=== PATIENT | female | born 1970 | race Caucasian/White ===

== ENCOUNTER 2018-05-28 13:48 | Outpatient (CLI) | payer OTHER, SELFPAY ==
[2018-05-28] VITALS (9 sets, daily range): BP systolic 111–136; BP diastolic 55–98; PULSE 75–87; RESP 16; TEMP 36.6; O2SAT 97–98
--- NOTE | 2018-05-28 13:50 | DI.RAD.S_ITS ---
PROCEDURE: PAIN L/S TRANSFORAMINAL INJECT INDICATIONS: SPONDYLOSIS FINDINGS: Fluoroscopic spot filming was performed to verify placement of spinal needles at the L3-L4 level(s), as labeled on the films. Appropriate location(s) of the needle tip(s) was confirmed by injection of iodinated contrast. Dictated by: Nick Stone M.D. on 05/28/2018 at 15:39 Approved by: Nick Stone M.D. on 05/28/2018 at 15:39
[2018-05-28] MEDS: MIDAZOLAM 5 MG/5 ML VIAL IV (14:55)
[2018-05-28] MEDS: BUPIVACAINE 0.25% (PF) VIAL 2 ML INJ (15:02)
[2018-05-28] MEDS: IOPAMIDOL 15 ML VIAL 3 ML INJ (15:02)
[2018-05-28] MEDS: DEXAMETHASONE 10 MG/ML VIAL 20 MG INJ (15:03)
[2018-05-28] MEDS: methylPREDNISolone acetate 80 MG/ML VIAL INJ (15:03)
--- NOTE | 2018-05-28 15:11 | PC.NURSE ---
assisting pt off table and transporting to post proc area in stable condition
--- NOTE | 2018-05-28 15:18 | PC.NURSE ---
returned via w/c post procedure, is alert and able to get from w/c with standby assist and assuming care from Nadege levine.
--- NOTE | 2018-05-28 15:20 | P.PCN_ITS ---
Procedures Date/Time Date of procedure: 05/28/18 Time of procedure: 15:19 General Procedure description: PROVIDER: Maxx Casillas DO Operative Note PREOP DIAGNOSIS 1. FORAMINAL STENOSIS WITH LE SYMPTOMS, POST OP DIAGNOSIS 1. FORAMINAL STENOSIS WITH LE SYMPTOMS, PROCEDURES 1. FLUOROSCOPICALLY GUIDED CONTRAST CONTROLLED TRANSFORAMINAL EPIDURAL STEROID INJECTION - RIGHT L3/4 TFESI SURGEON: Maxx Casillas, INDICATIONS Dayami is referred by [facility] for treatment of Foraminal Stenosis with right LE Symptoms FINDINGS Foraminal Nerve Root Compression secondary to disc disease and facet hypertrophy DESCRIPTION OF PROCEDURE Following denial of allergy and review of potential side effects and complications, including, but not necessarily limited to, infection, allergic reaction, local tissue breakdown, stroke, temporary or permanent nerve injury, paralysis, and possible , the patient indicated that the patient understood and agreed to proceed. An informed consent document was signed by the patient, witnessed by a nurse, and placed in the patient's chart. Additionally, other treatment options including medications, modalities, and physical therapy were reviewed with the patient. After review of previous anaesthesic history and IV conscious sedation the patient was deemed safe to proceed with todays procedure with IV conscious sedation as ASA class II designation. Safety time-out was performed to confirm patient ID, procedure to be performed and site of procedure. IV sedation was accomplished with a combination of 3mg was administered by the RN after DO order , titrated to patient comfort during the course of the procedure while the patient remained responsive to all verbal commands In the prone position following sterile prep and drape of the lumbar region, the right L3/4 posterior neuroforamen was identified fluoroscopically. The skin was anesthetized via a 25-gauge 1.5-inch needle with 1% lidocaine solution. At this point, a 25-gauge 3.5-inch spinal needle was atraumatically introduced and advanced under fluoroscopic guidance through the posterior right L3/4 neuroforamen to approximately the anterior aspect of the canal. Depth was confirmed on lateral view. Following negative aspiration, injection of approximately 1.5 cc of Isovue 200 under live fluoroscopy in the AP view confirmed excellent flow along the nerve root, into the epidural space without vascular or intrathecal uptake observed Radiological data, including multiple fluoroscopic views of the lumbosacral spine, reveal a spinal needle at the right L3/4 posterior neuroforamen. Subsequent views show flow of contrast material flowing superiorly and inferiorly along the nerve root confirming epidural flow. Subsequently, a test dose of 1.5 cc of 1% lidocaine solution was administered and patient was observed for two minutes for signs or symptoms of complications , including abdominal pain, shortness of breath, bilateral upper or lower extremity weakness, nausea and vomiting, prior to steroid injection. At this point, a total of 3 cc or 20 mg of dexamethasone and 80mg Depo medrol was injected without incident. The patient tolerated the procedure well without signs or symptoms of complications prior to transfer to the recovery area continued monitoring without incident. The patient was then transferred to the recovery area where they were observed for an appropriate time after the injection. The patient reported a VAS score of 7 prior to the procedure and a post-procedure VAS of 0. Total Fluoroscopy Time: 24.2 seconds Total Conscious Sedation Time: 24min POST OP INSTRUCTIONS The patient was provided a Pain Log to continue to record their response to the target-specific procedure prior to follow-up visit with their referring physician. Additionally, specific post-injection care instructions and a contact number to our office were provided if concerns arise regarding possible complications associated with the procedure are suspected. Maxx Casillas DO Complications: none
--- NOTE | 2018-05-29 14:12 | PC.NURSE ---
FOLLOW UP CALL MADE, LEFT MSG WITH CLINIC NUMBER FOR QUESTIONS/CONCERNS.
== END 2018-05-28 15:43 | disposition home or self-care (01) ==
LOC: RAD 13:49
PROVIDERS: Family Provider Family Medicine; PCP Family Medicine; Visit Provider Physical Medicine & Rehabilitation
DX: M48.061 Spinal stenosis, lumbar region without neurogenic claudication (principal); M51.16 Intervertebral disc disorders with radiculopathy, lumbar region; M47.817 Spondylosis without myelopathy or radiculopathy, lumbosacral region
CPT/HCPCS: 64483; 99152; J1040; J1100; J2250

== ENCOUNTER → 2018-07-05 11:32 | Outpatient (CLI) | payer OTHER, SELFPAY ==
[2018-07-05 11:52] LABS: Add Manual Diff / Slide Review NO; Basophils Absolute Auto 100 /uL (0-100); Basophils Percent Auto 0.7 % (0-2); Eosinophils Absolute Auto 200 /uL (0-450); Hematocrit 40.2 % (36-46); Hemoglobin 13.7 g/dL (12.0-16.0); Lymphocytes Absolute Auto 1900 /uL (1100-4500); Lymphocytes Percent Auto 24.1 % (25-40); Mean Corpuscular HGB Conc 34.1 % (30-36); Mean Corpuscular Hemoglobin 30.8 PG (26-34); Mean Corpuscular Volume 90.3 fL (80-100); Monocytes Absolute Auto 400 /uL (0-900); Monocytes Percent Auto 5.4 % (3-14); Neutrophils Absolute Auto 5300 /uL (1500-7000); Neutrophils Percent Auto 67.8 % (50-75); Platelet Count 386 X10^3/uL (150-400); Red Blood Cell Count 4.45 X10^6/uL (4.0-5.2); Red Cell Distribution Width 13.4 % (11.6-14.8); White Blood Cell Count 7.9 X10^3/uL (4.5-11.0)
[2018-07-05 12:53] LABS: Alanine Aminotransferase 34 IU/L (9-52); Albumin 4.5 g/dL (3.5-5.0); Albumin Globulin Ratio 1.5 (1.0-2.8); Alkaline Phosphatase 56 U/L (38-126); Aspartate Aminotransferase 27 IU/L (14-36); Bilirubin Total 1.4 mg/dL (0.2-1.3); Blood Urea Nitrogen 14 mg/dL (7-17); Calcium 9.3 mg/dL (8.4-10.2); Carbon Dioxide 26 mmol/L (22-32); Chloride 98 mmol/L (98-107); Cholesterol 207 mg/dL (140-199); Estimated Glomerular Filt Rate > 60.0 mL/min (>60); Glucose 96 mg/dL (70-100); HDL Cholesterol 32 mg/dL (40-60); HEMOLYSIS < 15 (0-50); LDL Cholesterol Calculated 150 mg/dL (<100); Potassium 3.9 mmol/L (3.4-5.1); Sodium 136 mmol/L (137-145); Total Protein 7.5 g/dL (6.3-8.2); Triglycerides 123 mg/dL (35-150)
[2018-07-05 13:14] LABS: TSH w/ Reflex to FT4 1.42 uIU/mL (0.47-4.68)
== END ==
PROVIDERS: PCP Family Medicine; Visit Provider Family Medicine
DX: Z00.00 Encounter for general adult medical examination without abnormal findings (principal); Z13.6 Encounter for screening for cardiovascular disorders
CPT/HCPCS: 36415; 80053; 80061; 84443; 85025

== ENCOUNTER 2018-08-14 12:22 | Outpatient (CLI) | payer OTHER, SELFPAY ==
[2018-08-14] VITALS (7 sets, daily range): BP systolic 116–137; BP diastolic 72–96; PULSE 72–88; RESP 16–17; O2SAT 97–99
--- NOTE | 2018-08-14 12:23 | DI.RAD.S_ITS ---
PROCEDURE: PAIN L/S TRANSFORAMINAL INJECT INDICATIONS: SPONDYLOSIS FINDINGS: Fluoroscopic spot filming was performed to verify placement of spinal needles at the right L2-3 neural foramen region, as labeled on the films. Appropriate location(s) of the needle tip(s) was confirmed by injection of iodinated contrast. IMPRESSION: Needle tip localization of the right L2-3 neural foraminal level for transforaminal epidural steroid injection. Dictated by: Camron Etienne M.D. on 08/14/2018 at 14:49 Approved by: Camron Etienne M.D. on 08/14/2018 at 14:50
[2018-08-14] MEDS: IOPAMIDOL 15 ML VIAL 3 ML INJ (13:36)
[2018-08-14] MEDS: BUPIVACAINE 0.25% (PF) VIAL 2 ML INJ (13:36)
[2018-08-14] MEDS: DEXAMETHASONE 10 MG/ML VIAL 20 MG INJ (13:36)
--- NOTE | 2018-08-14 13:44 | PM.PROC.1 ---
Procedures Date/Time Date of procedure: 08/14/18 Time of procedure: 13:44 General Procedure description: PROVIDER: Maxx Casillas DO Operative Note PREOP DIAGNOSIS 1. FORAMINAL STENOSIS WITH LE SYMPTOMS, POST OP DIAGNOSIS 1. FORAMINAL STENOSIS WITH LE SYMPTOMS, PROCEDURES 1. FLUOROSCOPICALLY GUIDED CONTRAST CONTROLLED TRANSFORAMINAL EPIDURAL STEROID INJECTION - LEFT L2/3 TFESI SURGEON: Maxx Casillas, INDICATIONS Dayami is referred by Dr. Bridges for treatment of Foraminal Stenosis with left LE Symptoms FINDINGS Foraminal Nerve Root Compression secondary to disc disease and facet hypertrophy DESCRIPTION OF PROCEDURE Following denial of allergy and review of potential side effects and complications, including, but not necessarily limited to, infection, allergic reaction, local tissue breakdown, stroke, temporary or permanent nerve injury, paralysis, and possible , the patient indicated that the patient understood and agreed to proceed. An informed consent document was signed by the patient, witnessed by a nurse, and placed in the patient's chart. Additionally, other treatment options including medications, modalities, and physical therapy were reviewed with the patient. After review of previous anaesthesic history and IV conscious sedation the patient was deemed safe to proceed with todays procedure with IV conscious sedation as ASA class II designation. Safety time-out was performed to confirm patient ID, procedure to be performed and site of procedure. IV sedation was accomplished with a combination of 3mg of Versed was administered by the RN after DO order, titrated to patient comfort during the course of the procedure while the patient remained responsive to all verbal commands In the prone position following sterile prep and drape of the lumbar region, the left L2/3 posterior neuroforamen was identified fluoroscopically. The skin was anesthetized via a 25-gauge 1.5-inch needle with 1% lidocaine solution. At this point, a 25-gauge 3.5-inch spinal needle was atraumatically introduced and advanced under fluoroscopic guidance through the posterior left L2/3 neuroforamen to approximately the anterior aspect of the canal. Depth was confirmed on lateral view. Following negative aspiration, injection of approximately 1.5 cc of Isovue 200 under live fluoroscopy in the AP view confirmed excellent flow along the nerve root, into the epidural space without vascular or intrathecal uptake observed Radiological data, including multiple fluoroscopic views of the lumbosacral spine, reveal a spinal needle at the left L2/3 posterior neuroforamen. Subsequent views show flow of contrast material flowing superiorly and inferiorly along the nerve root confirming epidural flow. Subsequently, a test dose of 1.5cc of 1% lidocaine solution was administered and patient was observed for two minutes for signs or symptoms of complications, including abdominal pain, shortness of breath, bilateral upper or lower extremity weakness, nausea and vomiting, prior to steroid injection. At this point, a total of 2cc or 20mg of dexamethasone was injected without incident. The patient tolerated the procedure well without signs or symptoms of complications prior to transfer to the recovery area continued monitoring without incident. The patient was then transferred to the recovery area where they were observed for an appropriate time after the injection. The patient reported a VAS score of 7 prior to the procedure and a post-procedure VAS of 0. Total Fluoroscopy Time: 24.2 seconds Total Conscious Sedation Time: 24min POST OP INSTRUCTIONS The patient was provided a Pain Log to continue to record their response to the target-specific procedure prior to follow-up visit with their referring physician. Additionally, specific post-injection care instructions and a contact number to our office were provided if concerns arise regarding possible complications associated with the procedure are suspected. Maxx Casillas DO Complications: none
[2018-08-14] MEDS: MIDAZOLAM 5 MG/5 ML VIAL IV (14:29)
--- NOTE | 2018-08-14 14:31 | PC.NURSE ---
pt finished procedure at 1339, she tolerated it well. Able to get off the table with standby assist. Transferred to pre procedure room via wheelchair for continued monitoring with Nadege WILEY.
== END 2018-08-14 14:36 | disposition home or self-care (01) ==
LOC: RAD 12:23
PROVIDERS: PCP Family Medicine; Visit Provider Physical Medicine & Rehabilitation
DX: M48.061 Spinal stenosis, lumbar region without neurogenic claudication (principal); M51.16 Intervertebral disc disorders with radiculopathy, lumbar region
CPT/HCPCS: 64483; 99152; J1100; J2250; J3010

== ENCOUNTER → 2018-09-10 09:25 | Outpatient (CLI) | payer OTHER, SELFPAY ==
--- NOTE | 2018-09-10 | DI.RAD.S_ITS ---
PROCEDURE: XR LUMBAR SPINE 2-3V INDICATIONS: LOW BACK PAIN TECHNIQUE: 2 views of the lumbar spine were acquired. COMPARISON: None. FINDINGS: Bones: No fracture or focal osseous destruction. Multilevel degenerative endplate sclerosis and spurring. Diffuse facet arthropathy. Straightening of the normal lordotic curvature. Grade 1 anterolisthesis of L2 on L3 and L3 on L4. Diffuse mild to moderate disc space narrowing throughout the entire lumbar spine. Lateral curvature of the thoracic and lumbar spine also noted however only partially visualized. Mild bilateral hip joint degeneration. Soft tissues: Overlying bowel gas pattern is normal. No suspicious soft tissue calcifications. Incidental IUD and right upper quadrant surgical clips. IMPRESSION: Diffuse mild/moderate lumbar spondylosis and facet arthropathy as detailed above. Dictated by: Nick Stone M.D. on 09/10/2018 at 11:36 Approved by: Nick Stone M.D. on 09/10/2018 at 11:39
== END ==
PROVIDERS: PCP Family Medicine; Visit Provider Chiropractor
DX: M54.5 Low back pain (principal); M47.816 Spondylosis without myelopathy or radiculopathy, lumbar region; M43.16 Spondylolisthesis, lumbar region; M48.061 Spinal stenosis, lumbar region without neurogenic claudication; M16.0 Bilateral primary osteoarthritis of hip
CPT/HCPCS: 72100

== ENCOUNTER 2019-01-28 08:52 | Outpatient (CLI) | payer OTHER, SELFPAY ==
[2019-01-28] VITALS (9 sets, daily range): BP systolic 120–142; BP diastolic 79–93; PULSE 77–84; RESP 16–18; TEMP 36.7; O2SAT 96–98
--- NOTE | 2019-01-28 08:54 | DI.RAD.S_ITS ---
PROCEDURE: PAIN L/S FACET INJ/BLK 1ST [facility] COMPARISON: None. INDICATIONS: SPONDYLOSIS FINDINGS: 6 intraoperative fluoroscopy images demonstrate needle placement at the L2-L3 and L3-L4 facet joint areas. IMPRESSION:Fluoroscopy guidance for pain management. Dictated by: Gabriel Baires M.D. on 01/28/2019 at 13:51 Approved by: Gabriel Baires M.D. on 01/28/2019 at 13:52
[2019-01-28] MEDS: fentaNYL 100 MCG/2 ML INJ 50 MCG IV (10:04)
[2019-01-28] MEDS: MIDAZOLAM 5 MG/5 ML VIAL IV (10:15)
[2019-01-28] MEDS: BETAMETHASONE 30 MG/5 ML MDV 12 MG INJ (10:15)
[2019-01-28] MEDS: BUPIVACAINE 0.5% (PF) VIAL 5 ML INJ (10:16)
[2019-01-28] MEDS: IOPAMIDOL 15 ML VIAL 3 ML INJ (10:16)
[2019-01-28] MEDS: LIDOCAINE 1% 20 ML 10 ML INJ (10:16)
--- NOTE | 2019-01-28 10:18 | PC.NURSE ---
ASSISTING PT OFF TABLE AND TRANSPORTING TO POST PROC AREA IN STABLE CONDITION. PASSING RN CARE OFF TO JESSICA Jung RN.
--- NOTE | 2019-01-28 10:26 | P.PCN_ITS ---
Procedures Date/Time Date of procedure: 01/28/19 Time of procedure: 10:26 General Procedure description: PREOP DIAGNOSIS 1. FACET ARTHROPATHY 2. AXIAL LBP 3. MULTILEVEL DDD POST OP DIAGNOSIS 1. FACET ARTHROPATHY 2. AXIAL LBP 3. MULTILEVEL DDD PROCEDURES 1. FLUORSCOPICALLY GUIDED CONTRAST CONTROLLED FACET JOINT INJECTIONS BILATERAL L2/3, L3/4 SURGEON: Maxx Casillas, DO INDICATION Dayami is referred by Dr. Bridges is referred for treatment of Axial LBP FINDINGS Multilevel Facet Arthropathy with Clinically significant axial LBP DESCRIPTION OF PROCEDURE Fluoroscopically guided, contrast-controlled bilateral L2/3, L3/4 facet joint injections. Following review of allergy and review of potential side effects and complications, including, but not necessarily limited to, infection, allergic reaction, local tissue breakdown, stroke, temporary or permanent nerve injury, paralysis, and possible , the patient indicated that the patient understood and agreed to proceed. An informed consent document was signed by the patient, witnessed by a nurse, and placed in the patient's chart. Additionally, other treatment options including medications, modalities, and physical therapy were reviewed with the patient. After review of previous anaesthesic history and IV conscious sedation the patient was deemed safe to proceed with todays procedure with IV conscious sedation as ASA class II designation. Safety time-out was performed to confirm patient ID, procedure to be performed and site of procedure. IV sedation was accomplished with a combination of 4mg of Versed and 50mcg of Fentanyl administered by the RN after DO order, titrated to patient comfort during the course of the procedure while the patient remained responsive to all verbal commands In the prone position, following sterile prep and drape of the lumbar region, the posterior aspect of the L2/3, L3/4 facet joints were identified fluoroscopically. The skin was anesthetized via a 25-gauge 1.5-inch needle with 1% lidocaine solution into the corresponding facet joints. At this point, a 22- gauge 3.5-inch spinal needle was atraumatically introduced and advanced under fluoroscopic guidance into the corresponding facet joints. Following negative a spiration, injections of approximately 0.2-cc of Isovue 200 confirmed interarticular placement without vascular uptake. The identical procedure was then performed at the L2/3, L3/4 facet joints on the left. Radiological data, including multiple fluoroscopic views of the lumbosacral spine, reveal a spinal needle at the L2/3, L3/4 facet joints bilaterally. Subsequent views show flow of contrast material both superiorly and inferiorly within the joint space without vascular or intrathecal uptake. At this point, a total of 0.5cc including a mixture of 0.25cc Marcaine and 0.25cc betamethasone was injected without complication into each of the corresponding facet joints. The patient tolerated the procedure well without signs or symptoms of complications prior to transfer to the recovery area continued monitoring without incident. The patient was then transferred to the recovery area where they were observed for an appropriate period of time after the injection. The patient reported a VAS score of 7 prior to the procedure and a post-procedure VAS of 0. Total Fluoroscopy Time: 20.3 seconds Total Conscious Sedation Time: 24 min POST OP INSTRUCTIONS The patient was provided a Pain Log to continue to record their response to the target-specific procedure prior to follow-up visit with their referring physician. Additionally, specific post-injection care instructions and a contact number to our office were provided if concerns arise regarding possible complications associated with the procedure are suspected. Maxx Casillas DO Complications: none
--- NOTE | 2019-01-28 10:51 | PC.NURSE ---
Discharge note: VSS, O2 sat WNL. Pain level 2/10 to inside right knee and right hip. Tolerating po without nausea. Stands without difficulty. Ambulated to wheelchair. Gait steady. Discharged to home w/c to car with at 1050
== END 2019-01-28 10:50 ==
LOC: RAD 08:53
PROVIDERS: PCP Family Medicine; Visit Provider Physical Medicine & Rehabilitation
DX: M47.816 Spondylosis without myelopathy or radiculopathy, lumbar region (principal); M54.5 Low back pain
CPT/HCPCS: 64493; 64494; 99152; J0702; J2250; J3010

== ENCOUNTER 2019-03-27 10:07 | Outpatient (CLI) | payer OTHER, SELFPAY ==
[2019-03-27] VITALS (8 sets, daily range): BP systolic 116–150; BP diastolic 67–100; PULSE 78–91; RESP 14–16; TEMP 36.5; O2SAT 97–100
--- NOTE | 2019-03-27 10:09 | DI.RAD.S_ITS ---
PROCEDURE: PAIN L/S TRANSFORAMINAL INJECT INDICATIONS: SPINAL STENOSIS FINDINGS: Fluoroscopic spot filming was performed to verify placement of spinal needles at the L3-L4 level(s), as labeled on the films. Appropriate location(s) of the needle tip(s) was confirmed by injection of iodinated contrast. IMPRESSION: Fluoroscopy for pain management. Dictated by: Gabriel Baires M.D. on 03/27/2019 at 13:43 Approved by: Gabriel Baires M.D. on 03/27/2019 at 13:43
[2019-03-27] MEDS: MIDAZOLAM 5 MG/5 ML VIAL IV (11:11)
[2019-03-27] MEDS: fentaNYL 100 MCG/2 ML INJ 50 MCG IV (11:11)
[2019-03-27] MEDS: IOPAMIDOL 15 ML VIAL 3 ML INJ (11:21)
[2019-03-27] MEDS: BETAMETHASONE 30 MG/5 ML MDV 6 MG INJ (11:21)
[2019-03-27] MEDS: BUPIVACAINE 0.25% (PF) VIAL 2 ML INJ (11:21)
--- NOTE | 2019-03-27 11:26 | P.PCN_ITS ---
Procedures Date/Time Date of procedure: 03/27/19 Time of procedure: 11:27 General Procedure description: PROVIDER: Maxx Casillas DO Operative Note PREOP DIAGNOSIS 1. FORAMINAL STENOSIS WITH LE SYMPTOMS, POST OP DIAGNOSIS 1. FORAMINAL STENOSIS WITH LE SYMPTOMS, PROCEDURES 1. FLUOROSCOPICALLY GUIDED CONTRAST CONTROLLED TRANSFORAMINAL EPIDURAL STEROID INJECTION - RIGHT L3/4 TFESI SURGEON: Maxx Casillas, INDICATIONS Dayami is referred by Dr. Bridges for treatment of Foraminal Stenosis with right LE Symptoms FINDINGS Foraminal Nerve Root Compression secondary to disc disease and facet hypertrophy DESCRIPTION OF PROCEDURE Following review of allergy and review of potential side effects and complications, including, but not necessarily limited to, infection, allergic reaction, local tissue breakdown, stroke, temporary or permanent nerve injury, paralysis, and possible , the patient indicated that the patient understood and agreed to proceed. An informed consent document was signed by the patient, witnessed by a nurse, and placed in the patient's chart. Additionally, other treatment options including medications, modalities, and physical therapy were reviewed with the patient. After review of previous anaesthesic history and IV conscious sedation the patient was deemed safe to proceed with todays procedure with IV conscious sedation as ASA class II designation. Safety time-out was performed to confirm p atient ID, procedure to be performed and site of procedure. IV sedation was accomplished with a combination of 3mg of Versed and 50mcg of Fentanyl was administered by the RN after DO order, titrated to patient comfort during the course of the procedure while the patient remained responsive to all verbal commands In the prone position following sterile prep and drape of the lumbar region, the right L3/4 posterior neuroforamen was identified fluoroscopically. The skin was anesthetized via a 25-gauge 1.5-inch needle with 1% lidocaine solution. At this point, a 25-gauge 3.5-inch spinal needle was atraumatically introduced and advanced under fluoroscopic guidance through the posterior right L3/4 neuroforamen to approximately the anterior aspect of the canal. Depth was confirmed on lateral view. Following negative aspiration, injection of approximately 1.5cc of Isovue 200 under live fluoroscopy in the AP view confirmed excellent flow along the nerve root, into the epidural space without vascular or intrathecal uptake observed Radiological data, including multiple fluoroscopic views of the lumbosacral spine, reveal a spinal needle at the right L3/4 posterior neuroforamen. Subsequ ent views show flow of contrast material flowing superiorly and inferiorly along the nerve root confirming epidural flow. Subsequently, a test dose of 1.5cc of 1% lidocaine solution was administered and patient was observed for two minutes for signs or symptoms of complications, including abdominal pain, shortness of breath, bilateral upper or lower extremity weakness, nausea and vomiting, prior to steroid injection. At this point, a total of 3cc or 20mg of dexamethasone and 6mg of betamethasone was injected without incident. The patient tolerated the procedure well without signs or symptoms of complications prior to transfer to the recovery area continued monitoring without incident. The patient was then transferred to the recovery area where they were observed for an appropriate time after the injection. The patient reported a VAS score of 7 prior to the procedure and a post-procedure VAS of 0. Total Fluoroscopy Time: 24.2 seconds Total Conscious Sedation Time: 24min POST OP INSTRUCTIONS The patient was provided a Pain Log to continue to record their response to the target-specific procedure prior to follow-up visit with their referring physician. Additionally, specific post-injection care instructions and a contact number to our office were provided if concerns arise regarding possible complications associated with the procedure are suspected. Maxx Casillas, Complications: none
--- NOTE | 2019-03-27 11:36 | PC.NURSE ---
Post procedure note: Time out at 1109. Patient medicated per providers orders. Patient tolerated procedure well. VSS throughout. Able to sit up and transfer from table to w/c without difficulty. Handoff report given to Tobi Preston RN. Transferred from w/c to recliner independently. Pain level 0/10 at 1125
[2019-03-27] MEDS: DEXAMETHASONE 10 MG/ML VIAL 20 MG INJ (17:14)
== END 2019-03-27 11:48 | disposition home or self-care (01) ==
LOC: RAD 10:08
PROVIDERS: PCP Family Medicine; Visit Provider Physical Medicine & Rehabilitation
DX: M48.061 Spinal stenosis, lumbar region without neurogenic claudication (principal); M51.16 Intervertebral disc disorders with radiculopathy, lumbar region
CPT/HCPCS: 64483; 99152; J0702; J1100; J2250; J3010

== ENCOUNTER → 2019-11-18 16:11 | Outpatient (CLI) | payer OTHER, SELFPAY ==
[2019-11-18 17:06] LABS: Add Manual Diff / Slide Review NO; Basophils Absolute Auto 100 /uL (0-100); Basophils Percent Auto 0.8 % (0-2); Eosinophils Absolute Auto 100 /uL (0-450); Eosinophils Percent Auto 1.5 % (2-4); Hematocrit 39.6 % (36-46); Hemoglobin 13.9 g/dL (12.0-16.0); Lymphocytes Absolute Auto 2700 /uL (1100-4500); Lymphocytes Percent Auto 27.4 % (25-40); Mean Corpuscular Hemoglobin 31.2 PG (26-34); Mean Corpuscular Volume 89.1 fL (80-100); Monocytes Absolute Auto 600 /uL (0-900); Monocytes Percent Auto 6.2 % (3-14); Neutrophils Absolute Auto 6400 /uL (1500-7000); Neutrophils Percent Auto 64.1 % (50-75); Platelet Count 472 X10^3/uL (150-400); Red Blood Cell Count 4.44 X10^6/uL (4.0-5.2); Red Cell Distribution Width 13.5 % (11.6-14.8); White Blood Cell Count 9.9 X10^3/uL (4.5-11.0)
[2019-11-18 17:10] LABS: Hemoglobin A1C% w Est Avg Glu 6.3 % (4.0-6.0)
[2019-11-18 17:29] LABS: Alanine Aminotransferase 40 IU/L (<35); Albumin 4.8 g/dL (3.5-5.0); Albumin Globulin Ratio 1.8 (1.0-2.8); Alkaline Phosphatase 73 U/L (38-126); Aspartate Aminotransferase 40 IU/L (14-36); BUN Creatinine Ratio 16.8 (6-22); Bilirubin Total 1.1 mg/dL (0.2-1.3); Blood Urea Nitrogen 16 mg/dL (7-17); Calcium 10.1 mg/dL (8.4-10.2); Carbon Dioxide 30 mmol/L (22-32); Chloride 99 mmol/L (98-107); Estimated Glomerular Filt Rate > 60.0 mL/min (>60); Globulin 2.7 g/dL (1.7-4.1); Glucose 126 mg/dL (70-100); HEMOLYSIS < 15 (0-50); Potassium 3.9 mmol/L (3.4-5.1); Sodium 137 mmol/L (137-145); Total Protein 7.5 g/dL (6.3-8.2)
[2019-11-18 17:31] LABS: Rheumatoid Factor < 8.6 IU/mL (<12.0)
[2019-11-18 17:41] LABS: Erythrocyte Sedimentation Rate 10 MM/HR (0-20)
[2019-11-18 17:57] LABS: TSH w/ Reflex to FT4 1.71 uIU/mL (0.47-4.68)
[2019-11-20 21:07] LABS: CCP Antibodies IgG/IgA 3 units (0-19)
== END ==
PROVIDERS: PCP Family Medicine; Referring Provider Family Medicine; Visit Provider Family Medicine
DX: I10 Essential (primary) hypertension (principal); M25.50 Pain in unspecified joint; M79.7 Fibromyalgia; R73.9 Hyperglycemia, unspecified
CPT/HCPCS: 36415; 80053; 83036; 84443; 85025; 85651; 86140; 86200; 86430

== ENCOUNTER → 2019-11-22 10:19 | Outpatient (CLI) | payer OTHER, SELFPAY ==
[2019-11-24 21:01] LABS: COVID19 Sendout Not Detected (Not Detect)
== END ==
PROVIDERS: PCP Family Medicine; Visit Provider Physician Assistant
DX: Z11.59 Encounter for screening for other viral diseases (principal)
CPT/HCPCS: 87635

== ENCOUNTER 2019-11-25 10:36 | Outpatient (CLI) | payer OTHER, SELFPAY ==
[2019-11-25] VITALS (7 sets, daily range): BP systolic 116–163; BP diastolic 68–101; PULSE 78–94; RESP 16; O2SAT 97–99
--- NOTE | 2019-11-25 10:37 | DI.RAD.S_ITS ---
PROCEDURE: PAIN SI JOINT INJECTION [facility] COMPARISON: None. INDICATIONS: SACROCCYGEAL DISORDER FINDINGS: Fluoroscopic spot filming was performed to verify placement of spinal needles at the the left and right sacroiliac joints, as labeled on the films. Appropriate location(s) of the needle tip(s) was confirmed by injection of iodinated contrast. Dictated by: Nick Stone M.D. on 11/25/2019 at 13:52 Approved by: Nick Stone M.D. on 11/25/2019 at 13:53
[2019-11-25] MEDS: MIDAZOLAM 5 MG/5 ML VIAL IV (11:17)
[2019-11-25] MEDS: fentaNYL 100 MCG/2 ML INJ 50 MCG IV (11:17)
[2019-11-25] MEDS: BUPIVACAINE 0.5% (PF) VIAL 5 ML INJ (11:21)
[2019-11-25] MEDS: LIDOCAINE 1% 20 ML 5 ML INJ (11:21)
[2019-11-25] MEDS: BETAMETHASONE 30 MG/5 ML MDV 12 MG INJ (11:22)
[2019-11-25] MEDS: IOPAMIDOL 15 ML VIAL 3 ML INJ (11:22)
--- NOTE | 2019-11-25 11:32 | PM.PROC.IR.1 ---
Date/Time/Diagnoses Date of procedure: 11/25/19 Time of procedure: 11:32 Pre-procedure diagnosis: Sacroiliac joint pain/DJD Post-procedure diagnosis: same Procedure Notes Procedure: Fluoroscopic guided contrast controlled bilateral sacroiliac joint injection Indications: Dayami is referred by Dr. Bridges for treatment of right sacroiliac joint DJD Physician: Maxx Casillas Total Fluoroscopy time (seconds): 15 Total sedation minutes: 12 Complications: none Procedure in detail & Post-procedure care: Description of procedure Fluoroscopic guided, contrast controlled bilateral sacroiliac joint injection Following review of allergies and review of potential side effects and complications, including, but not necessarily limited to, infection, allergic reaction, local tissue breakdown, temporary as well as permanent nerve injury, paralysis, stroke and possible , the patient indicated that they understood and agreed to proceed. An informed consent was signed by the patient, witnessed by a nurse, and placed in the patient's chart. Additionally, other treatment options including modalities, medications, and physical therapy were reviewed with the patient. After review of previous anaesthesic history and IV conscious sedation the patient was deemed safe to proceed with today?s procedure with IV conscious sedation as ASA class II designation. Safety time-out was performed to confirm patient ID, procedure to be performed and site of procedure. IV sedation was accomplished with a combination of 3mg Versed and 50mcg of Fentanyl were administered by the RN after DO order, titrated to patient comfort during the course of the procedure while the patient remained responsive to all verbal commands In the prone position following sterile prep and drape of the pelvic region, the hyper lucency on in the inferior aspect of the sacroiliac joint was identified fluoroscopically the skin was anesthetized be a 25 gauge 1 eventual with approximately 2 cc of 1% lidocaine solution. At this point, a 22 gauge 3 in spinal needle was atraumatically introduced and advanced under fluoroscopic guidance into the inferior aspect of the right sacroiliac joint. Following negative aspiration, approximately 0.3 cc of Isovue-300 was injected confirming intra-articular placement without vascular uptake. Radiographic data, including multiple fluoroscopic views of the pelvis, reveals a spinal needle in the sacroiliac joint hyper lucent zone. Subsequent view show flow contrast tear superiorly and inferiorly within the joint capsule without vascular intrathecal uptake. At this point a total of 1 of 0.5% Marcaine was combined with 1cc of 6 mg of betamethasone was injected without incident. Attention was then refocused the left sacroiliac joint where the procedure was replicated. The procedure tolerated the procedure well without signs or symptoms of complications prior to transfer to the recovery area continued monitoring without incident. The patient was then transferred to the recovery area with a bur observed for an appropriate time after the injection. The patient reverted a vas score of 7 prior to the procedure and post-procedure vas of 1. Postop instructions The patient was provided with a pain like to continue to record the patient's response to the target specific procedure prior to the patient's follow-up visit with the referring physician. Additionally, specific post injection care instructions and a contact number to our office were provided if concerns arise regarding the possible complications associated with procedure are suspected.
--- NOTE | 2019-11-25 12:11 | PC.NURSE ---
1130 Pt tolerated procedure well, 2PA off table to , returned to pre proc room for further observation
--- NOTE | 2019-11-25 12:13 | PC.NURSE ---
1138: monitoring resumed by this rn.
== END 2019-11-25 12:00 | disposition home or self-care (01) ==
LOC: RAD 10:37
PROVIDERS: PCP Family Medicine; Referring Provider Physical Medicine & Rehabilitation; Visit Provider Physical Medicine & Rehabilitation
DX: M53.3 Sacrococcygeal disorders, not elsewhere classified (principal); M47.898 Other spondylosis, sacral and sacrococcygeal region
CPT/HCPCS: 27096; 99152; J0702; J2250; J3010

== ENCOUNTER → 2019-12-03 10:55 | Outpatient (CLI) | payer OTHER, SELFPAY ==
--- NOTE | 2019-12-03 12:37 | DIET.PN ---
Nutrition Initial Assessment:? ASSESS:???Mrs. Cristobal is a 49 yof referred for pre-diabetes. She presents frustrated with weight loss results with diets she has tried. States she has tried nutrisystem and is currently following a form of Keto which has worked for her in the past, but she has trouble staying on them. She has a large garden and is able to follow a restricted keto diet during the day, but splurges at night with sweets. Generally eats 2 meals/day as she has a late breakfast. Reports strong family hx of diabetes. She is eager to lose weight so she can begin hiking again and is motivated to see improved lab results for her overall health. She reports little to no exercise due to joint pain. She believes losing weight with help with her fibromyalgia and make hiking more enjoyable again. ? LABS: Per pt report:? A1c: 6.3 Chol: 207 LDL: 150 HDL: 32 Tr ? MEDS:?? metformin 500 mg a.m. ? DIET: Per 24-hour recall:? B: squash w/ cheese, omelet, quesadilla D: pro, veg, occasional starch evening sn: sweets ? Weight: 250 lb Ht:? 64 in BMI: 42.9 ? Exercise:? gardening, kayaking NUTRITION DX 1. Altered Nutrition related labs related to impaired glucose metabolism, lack of previous exposure to accurate nutrition information as evidenced by pt report, dx of pre-diabetes, previous diet high in refined carbohydrates, lack of physical activity.? INTERVENTION(s): 1. Discussed pathophysiology of diabetes/hyperglycemia and impact of nutrition/diet on blood sugar control.? 2. Discussed the effect of carbohydrates/protein/fat on blood sugar control.? Stressed importance of consistent carbohydrate intake at each meal and provided instructions for recommended servings/portions of carbohydrates/protein per meal. 3. Discussed the difference between simple versus complex carbohydrates and the effect of fiber on blood sugar control.? Discussed various methods to increase fiber content in diet. 4. Discussed ketogenic diet and nutrient ratio recommendations. Explained ketosis and importance of following the plan in a healthy manner including limiting saturated fats and eliminating all sugars. 5. Stressed importance of meal timing and not going >4-5 hours between meals. Encouraged adding protein to snacks to support glucose control and prevent hunger. Discussed various snack options. 6. Discussed importance of food preparation to encourage healthy eating, portion control, and prevent hunger/over snacking. 7. Discussed healthy weight loss goals of 1-2lbs per week through diet and exercise.? Goals: 1. Pt would like to lose 50 lbs (goal weight) by next summer through dietary changes to prepare for summer hiking challenges she enjoys with her family. MONITOR/EVALUATE: Anticipate excellent compliance.?Pt will call for follow up.
== END ==
PROVIDERS: PCP Family Medicine; Referring Provider Family Medicine; Visit Provider Family Medicine
DX: R73.03 Prediabetes (principal); E66.9 Obesity, unspecified; Z68.41 Body mass index [BMI] 40.0-44.9, adult; Z71.3 Dietary counseling and surveillance; Z79.84 Long term (current) use of oral hypoglycemic drugs
CPT/HCPCS: 97802

== ENCOUNTER → 2020-05-17 11:38 | Outpatient (CLI) | payer OTHER, SELFPAY ==
--- NOTE | 2020-05-17 11:41 | DI.RAD.S_ITS ---
PROCEDURE: XR LUMBAR SPINE MIN 4V INDICATIONS: LBP TECHNIQUE: 4 views of the lumbar spine were acquired. COMPARISON: [facility], , XR LUMBAR SPINE 2-3V, 09/10/2018, 9:39. FINDINGS: Bones: No fracture. Straightening of the normal lordotic curvature. Multilevel degenerative endplate sclerosis and spurring. Diffuse facet arthropathy. Diffuse mild to moderate narrowing of the lumbar disc spaces. Partially visualized lateral curvature of the thoracolumbar spine. Mild bilateral hip joint degeneration. Bilateral sacroiliac sclerosis and spurring without ankylosis. Grade 1 anterolisthesis of L2 on L3, unchanged. Soft tissues: Incidentally noted IUD Oblique images: No pars defects. IMPRESSION: Multilevel lumbar spondylosis and facet disease, grossly unchanged since 09/10/18. Dictated by: Nick Stone M.D. on 05/17/2020 at 12:02 Approved by: Nick Stone M.D. on 05/17/2020 at 12:03
--- NOTE | 2020-05-17 11:41 | DI.RAD.S_ITS ---
PROCEDURE: XR HIP W PEL IF DONE LT MIN 4V INDICATIONS: LBP TECHNIQUE: AP pelvis with lateral view(s) of the right and left hip(s). COMPARISON: [facility], , [id number] W PEL IF PERFORMED, 09/12/2016, 14:52. FINDINGS: Bones: No fracture. Mild bilateral hip joint degeneration which appears unchanged. Scattered degenerative subchondral sclerosis and spurring. Lower lumbar spondylosis. Soft tissues: Incidentally noted IUD IMPRESSION: Bilateral mild hip joint degeneration, grossly unchanged since 09/12/16 Dictated by: Nick Stone M.D. on 05/17/2020 at 12:04 Approved by: Nick Stone M.D. on 05/17/2020 at 12:05
== END ==
PROVIDERS: PCP Family Medicine; Referring Provider Physical Medicine & Rehabilitation; Visit Provider Physical Medicine & Rehabilitation
DX: M47.27 Other spondylosis with radiculopathy, lumbosacral region (principal); M47.26 Other spondylosis with radiculopathy, lumbar region; M54.5 Low back pain; M16.0 Bilateral primary osteoarthritis of hip
CPT/HCPCS: 72110; 73522

== ENCOUNTER → 2020-08-17 08:44 | Outpatient (CLI) | payer OTHER, SELFPAY ==
[2020-08-17 18:39] LABS: COVID19 -Nasal RAPID Negative (Negative)
== END ==
PROVIDERS: PCP Family Medicine; Visit Provider Physical Medicine & Rehabilitation
DX: Z20.822 Contact with and (suspected) exposure to COVID-19 (principal)
CPT/HCPCS: 87635; C9803

== ENCOUNTER 2020-08-19 14:19 | Outpatient (CLI) | payer OTHER, SELFPAY ==
[2020-08-19] VITALS (9 sets, daily range): BP systolic 110–137; BP diastolic 55–94; PULSE 84–95; RESP 10–22; TEMP 36.7; O2SAT 96–100
--- NOTE | 2020-08-19 14:20 | DI.RAD.S_ITS ---
PROCEDURE: PAIN L/S FACET INJ/BLK 1ST [place] COMPARISON: [facility], , PAIN L/S FACET INJ/BLK 1ST [place], 01/28/2019, 10:07. INDICATIONS: SPONDYLOSIS FINDINGS: Fluoroscopic spot filming was performed to verify placement of spinal needles at the L4-L5 level and the L5-S1 level on both sides, as labeled on the films. Appropriate location of the needle tips was confirmed by injection of iodinated contrast. IMPRESSION: Intraprocedural examination within normal limits. Dictated by: Trevon Mehta M.D. on 08/19/2020 at 15:15 Approved by: Trevon Mehta M.D. on 08/19/2020 at 15:16
[2020-08-19] MEDS: MIDAZOLAM 5 MG/5 ML VIAL IV (15:17)
[2020-08-19] MEDS: fentaNYL 100 MCG/2 ML INJ 50 MCG IV (15:17)
[2020-08-19] MEDS: IOPAMIDOL 15 ML VIAL 3 ML INJ (15:22)
[2020-08-19] MEDS: LIDOCAINE 1% 20 ML 10 ML INJ (15:22)
[2020-08-19] MEDS: BUPIVACAINE 0.5% (PF) VIAL 2 ML INJ (15:22)
[2020-08-19] MEDS: BETAMETHASONE 30 MG/5 ML MDV 12 MG INJ (15:23)
--- NOTE | 2020-08-19 15:35 | P.PCN_ITS ---
Date/Time/Diagnoses Date of procedure: 08/19/20 Time of procedure: 15:35 Pre-procedure diagnosis: 1. FACET ARTHROPATHY 2. AXIAL LBP 3. MULTILEVEL DDD Post-procedure diagnosis: same Procedure Notes Procedure: 1. FLUOROSCOPICALLY GUIDED CONTRAST CONTROLLED FACET JOINT INJECTIONS BILATERAL L4/5, L5/S1 Indications: Dayami is referred by Dr. Bridges for treatment of Axial LBP Physician: Maxx Casillas Total Fluoroscopy time (seconds): 14 Total sedation minutes: 15 Complications: none Procedure in detail & Post-procedure care: FINDINGS Multilevel Facet Arthropathy with Clinically significant axial LBP DESCRIPTION OF PROCEDURE Fluoroscopically guided, contrast-controlled bilateral L4/5, L5/S1 facet joint injections. Following review of allergy and review of potential side effects and complications, including, but not necessarily limited to, infection, allergic reaction, local tissue breakdown, stroke, temporary or permanent nerve injury, paralysis, and possible , the patient indicated that the patient understood and agreed to proceed. An informed consent document was signed by the patient, witnessed by a nurse, and placed in the patient's chart. Additionally, other treatment options including medications, modalities, and physical therapy were reviewed with the patient. After review of previous anaesthesic history and IV conscious sedation the patient was deemed safe to proceed with today?s procedure with IV conscious sedation as ASA class II designation. Safety time-out was performed to confirm patient ID, procedure to be performed and site of procedure. IV sedation was accomplished with a combination of 3mg of Versed and 50mcg of Fentanyl was administered by the RN after DO order, titrated to patient comfort during the course of the procedure while the patient remained responsive to all verbal commands In the prone position, following sterile prep and drape of the lumbar region, the posterior aspect of the L4/5, L5/S1 facet joints were identified fluoroscopically. The skin was anesthetized via a 25-gauge 1.5inch needle with 1% lidocaine solution into the corresponding facet joints. At this point, a 22- gauge 3.5-inch spinal needle was atraumatically introduced and advanced under fluoroscopic guidance into the corresponding facet joints. Following negative aspiration, injections of approximately 0.2cc of Isovue 200 confirmed interar ticular placement without vascular uptake. The identical procedure was then performed at the L4/5, L5/S1 facet joints on the left. Radiological data, including multiple fluoroscopic views of the lumbosacral spine, reveal a spinal needle at the L4/5, L5/S1 facet joints bilaterally. Subsequent views show flow of contrast material both superiorly and inferiorly within the joint space without vascular or intrathecal uptake. At this point, a total of 0.5cc including a mixture of 0.25cc Marcaine and 0.25cc betamethasone was injected without complication into each of the corresponding facet joints. The patient tolerated the procedure well without signs or symptoms of complications prior to transfer to the recovery area continued monitoring without incident. The patient was then transferred to the recovery area where they were observed for an appropriate period of time after the injection. The patient reported a VAS score of 7 prior to the procedure and a post- procedure VAS of 0. POST OP INSTRUCTIONS The patient was provided a Pain Log to continue to record their response to the target-specific procedure prior to follow-up visit with their referring physician. Additionally, specific post-injection care instructions and a contact number to our office were provided if concerns arise regarding possible complications associated with the procedure are suspected.
== END 2020-08-19 15:52 | disposition home or self-care (01) ==
PROVIDERS: PCP Family Medicine; Referring Provider Physical Medicine & Rehabilitation; Visit Provider Physical Medicine & Rehabilitation
DX: M47.817 Spondylosis without myelopathy or radiculopathy, lumbosacral region (principal); M47.816 Spondylosis without myelopathy or radiculopathy, lumbar region; M51.36 Other intervertebral disc degeneration, lumbar region; M51.37 Other intervertebral disc degeneration, lumbosacral region; M54.5 Low back pain
CPT/HCPCS: 64493; 64494; 99152; J0702; J2250; J3010

== ENCOUNTER → 2021-05-09 10:22 | Outpatient (CLI) | payer OTHER, SELFPAY ==
[2021-05-09 12:12] LABS: Add Manual Diff / Slide Review NO; Basophils Absolute Auto 100 /uL (0-100); Eosinophils Absolute Auto 200 /uL (0-450); Eosinophils Percent Auto 2.6 % (2-4); Hematocrit 40.8 % (36-46); Lymphocytes Absolute Auto 1700 /uL (1100-4500); Lymphocytes Percent Auto 29.2 % (25-40); Mean Corpuscular HGB Conc 34.2 % (30-36); Mean Corpuscular Hemoglobin 30.6 PG (26-34); Mean Corpuscular Volume 89.5 fL (80-100); Monocytes Absolute Auto 300 /uL (0-900); Monocytes Percent Auto 5.8 % (3-14); Neutrophils Absolute Auto 3600 /uL (1500-7000); Neutrophils Percent Auto 61.4 % (50-75); Platelet Count 392 X10^3/uL (150-400); Red Blood Cell Count 4.56 X10^6/uL (4.0-5.2); Red Cell Distribution Width 13.3 % (11.6-14.8); White Blood Cell Count 5.8 X10^3/uL (4.5-11.0)
[2021-05-09 12:57] LABS: Alanine Aminotransferase 24 IU/L (<35); Albumin 4.6 g/dL (3.5-5.0); Albumin Globulin Ratio 1.6 (1.0-2.8); Alkaline Phosphatase 59 U/L (38-126); Aspartate Aminotransferase 27 IU/L (14-36); BUN Creatinine Ratio 22.2 (6-22); Bilirubin Total 1.3 mg/dL (0.2-1.3); Blood Urea Nitrogen 18 mg/dL (7-17); Calcium 9.5 mg/dL (8.4-10.2); Carbon Dioxide 26 mmol/L (22-32); Chloride 102 mmol/L (98-107); Cholesterol 232 mg/dL (140-199); Estimated Glomerular Filt Rate > 60.0 mL/min (>60); Globulin 2.9 g/dL (1.7-4.1); Glucose 116 mg/dL (70-100); HDL Cholesterol 42 mg/dL (40-60); HEMOLYSIS < 15 (0-50); LDL Cholesterol Calculated 154 mg/dL (<100); Potassium 4.8 mmol/L (3.4-5.1); Sodium 136 mmol/L (137-145); Total Protein 7.5 g/dL (6.3-8.2); Triglycerides 180 mg/dL (35-150)
[2021-05-09 13:09] LABS: Hemoglobin A1C% w Est Avg Glu 5.7 % (4.0-6.0)
[2021-05-09 13:24] LABS: Thyroid Stimulating Hormone 1.39 uIU/mL (0.47-4.68)
[2021-05-09 19:04] LABS: Creatinine Urine Random 193.1 mg/dL
[2021-05-09 19:09] LABS: Microalbumi Creatinin Ratio Ur 29.5 ug/mg CR (<30); Microalbumin Urine Random 5.7 mg/dL (0-1.6)
== END ==
PROVIDERS: PCP Family Medicine; Referring Provider Physician Assistant; Visit Provider Physician Assistant
DX: I10 Essential (primary) hypertension (principal); R73.01 Impaired fasting glucose; Z13.220 Encounter for screening for lipoid disorders; Z13.6 Encounter for screening for cardiovascular disorders
CPT/HCPCS: 36415; 80053; 80061; 82043; 82570; 83036; 84443; 85025

== ENCOUNTER → 2021-06-21 15:55 | Outpatient (CLI) | payer OTHER, SELFPAY ==
[2021-06-21 17:56] LABS: BUN Creatinine Ratio 22.4 (6-22); Blood Urea Nitrogen 17 mg/dL (7-17); Calcium 9.4 mg/dL (8.4-10.2); Carbon Dioxide 28 mmol/L (22-32); Chloride 103 mmol/L (98-107); Estimated Glomerular Filt Rate > 60.0 mL/min (>60); Glucose 95 mg/dL (70-100); HEMOLYSIS < 15 (0-50); Potassium 4.2 mmol/L (3.4-5.1); Sodium 137 mmol/L (137-145)
[2021-06-22 08:09] LABS: Varicella IgG Antibody 924 index (Immune >165)
== END ==
PROVIDERS: PCP Family Medicine; Referring Provider Physician Assistant; Visit Provider Physician Assistant
DX: Z01.84 Encounter for antibody response examination (principal); I10 Essential (primary) hypertension
CPT/HCPCS: 36415; 80048; 86787

== ENCOUNTER → 2021-08-08 15:32 | Outpatient (CLI) | payer OTHER, SELFPAY ==
--- NOTE | 2021-08-08 15:33 | DI.MRI.S_ITS ---
PROCEDURE: MR PELVIS WO CON INDICATIONS: BILATERAL SACROILIITIS/HX OF LABRAL AND GLUTEAL TEAR TECHNIQUE: Noncontrast axial, sagittal, and oblique coronal T1 spin echo and STIR through the sacroiliac joints. COMPARISON: [facility], RG, MRI PELVIS W/O CONTRAST, 12/10/2017, 12:00. [facility], CR, XR HIP W PEL IF DONE [place] 3TO4V, 05/17/2020, 11:43. FINDINGS: Image quality: Excellent. Bones: There is predominant hypointense signal surrounding the right sacroiliac joint with osseous irregularity and small foci of chronic appearing mild STIR hypointense signal. Findings are likely the sequela of prior sacroiliitis without definite active inflammation. Mild sclerosis is seen adjacent to the left sacroiliac joint that may also be the sequela of prior sacroiliitis. No ankylosis is seen. No marrow replacing mass. Soft tissues: No presacral masses. Typically benign left sacral Tarlov cyst is noted. Rectum appears normal in caliber and wall thickness. No pathologic free pelvic fluid. An intrauterine device is partially imaged. The gluteus tendons are not included in the field of view of this exam that is tailored for evaluation of the sacroiliac joints. IMPRESSION: 1. Chronic sequela of prior sacroiliitis is seen bilaterally, asymmetrically worse on the right. No definite signs of active sacroiliitis. 2. Bilateral hips are not well evaluated on this exam. Dedicated hip MRI could be performed for further evaluation if indicated clinically. Dictated by: Dar Hadn M.D. on 08/08/2021 at 20:50 Approved by: Dar Hand M.D. on 08/08/2021 at 20:56
--- NOTE | 2021-08-08 15:33 | DI.MRI.S_ITS ---
PROCEDURE: MR LUMBAR SPINE WO CON INDICATIONS: CHRONIC PROGRESSIVE LBP WITH RADIATION TO HIPS TECHNIQUE: Noncontrast sagittal T1 spin echo and T2 fast echo, sagittal STIR, and T2 fast spin echo through the lumbar spine. In cases with scoliosis, additional coronal T2 fast spin echo may be performed. COMPARISON: None. FINDINGS: Image quality: This examination is limited by involuntary motion artifact. Alignment and Curvature: There is minimal anterolisthesis seen at the L2-L3 and L3-L4 levels. Bone Marrow: Marrow is of normal overall signal. Scattered foci are seen, which are hyperintense on T1-weighted and T2-weighted imaging, which are most consistent with benign vertebral body hemangiomas. No acute vertebral body compression fractures. Spinal Cord: Conus medullaris terminates at the L1 level. Visualized cord demonstrates normal signal and size. Paraspinous Soft Tissues: No paravertebral masses. Incidental note is made of a retroaortic left renal vein. T11-T12: Moderate loss of disc height is seen. Moderate generalized disc bulge is seen. Moderate facet joint hypertrophy is seen. Mild bilateral neural foraminal narrowing is seen. Moderate central canal narrowing is seen. T12-L1: No significant abnormality is seen. L1-L2: The disc height and disk signal are well-preserved. Mild to moderate disc bulge is seen. There is at least moderate facet hypertrophy. Mild bilateral neural foraminal narrowing is seen. At least moderate central canal narrowing is seen, as on series 5, image 10. L2-L3: Mild loss of disc height is seen. Loss of disc signal is seen. At least moderate disc bulge is seen, with a central disc protrusion. Prominent facet hypertrophy is seen. There is moderate bilateral neural foraminal narrowing. Moderate to severe central canal narrowing is seen, as on series 5, image 15. L3-L4: The disc height is well-preserved. Loss of disc signal is seen at this level. At least moderate disc bulge is seen, with a central disc protrusion. Moderate to prominent facet hypertrophy is seen. There is [id number] right-sided and mild left-sided neural foraminal narrowing. At least moderate central canal narrowing is seen, as on series 5, image 21. L4-L5: The disc height is well-preserved. Loss of disc signal is seen at this level. Moderate disc bulge is seen. There is a superimposed central disc protrusion. Prominent facet hypertrophy is seen. There is at least moderate right-sided and moderate left-sided neural foraminal narrowing. Moderate central canal narrowing is seen. L5-S1: The disc height is well-preserved. Loss of disc signal is seen at this level. Mild generalized disc bulge is seen. Prominent facet hypertrophy is seen. There is at least moderate right-sided neural foraminal narrowing, with a degree of compression upon the exiting right L5 nerve root. Moderate left-sided neural foraminal narrowing is seen. No significant central canal narrowing is seen. Incidental note is made of a presumed perineural cyst (Tarlov's cyst) at the S2 level. IMPRESSION: Multiple levels of relatively prominent lumbar spine degenerative change are seen. 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 on 08/08/2021 at 15:45 Approved by: Trevon Mehta M.D. on 08/08/2021 at 15:51
== END ==
PROVIDERS: PCP Family Medicine; Referring Provider Physical Medicine & Rehabilitation; Visit Provider Physical Medicine & Rehabilitation
DX: M46.1 Sacroiliitis, not elsewhere classified (principal); M51.26 Other intervertebral disc displacement, lumbar region; M47.816 Spondylosis without myelopathy or radiculopathy, lumbar region; G96.191 Perineural cyst; D18.09 Hemangioma of other sites
CPT/HCPCS: 72148; 72195

== ENCOUNTER 2022-01-24 08:09 | Outpatient (CLI) | payer OTHER, SELFPAY ==
[2022-01-24] VITALS (9 sets, daily range): BP systolic 131–159; BP diastolic 79–99; PULSE 69–77; RESP 11–20; TEMP 36.9; O2SAT 98–100
--- NOTE | 2022-01-24 08:12 | DI.RAD.S_ITS ---
PROCEDURE: PAIN SI JOINT INJECTION [place] COMPARISON: [facility], MR, MR PELVIS WO CON, 08/08/2021, 15:56. INDICATIONS: SACROILIAC DISORDER FINDINGS: On these intraprocedural images, there is a spinal needle seen overlying the inferior aspect of each of the sacroiliac joints. Appropriate position of the tip of the needles was confirmed by injection of a small amount of iodinated contrast. IMPRESSION: Successful sacroiliac joint injection on both sides. Dictated by: Trevon Mehta M.D. on 01/24/2022 at 13:46 Approved by: Trevon Mehta M.D. on 01/24/2022 at 13:47
[2022-01-24] MEDS: MIDAZOLAM 2 MG/2 ML VIAL IV (09:32)
[2022-01-24] MEDS: IOPAMIDOL 15 ML VIAL 3 ML INJ (09:38)
[2022-01-24] MEDS: BETAMETHASONE 30 MG/5 ML MDV 12 MG INJ (09:38)
[2022-01-24] MEDS: BUPIVACAINE 0.5% (PF) VIAL 2 ML INJ (09:38)
[2022-01-24] MEDS: LIDOCAINE 1% 20 ML INJ (09:39)
--- NOTE | 2022-01-24 09:51 | P.PCN_ITS ---
Date/Time/Diagnoses Date of procedure: 01/24/22 Time of procedure: 09:51 Pre-procedure diagnosis: Sacroiliac joint pain/DJD Post-procedure diagnosis: same Procedure Notes Procedure: Fluoroscopic guided contrast controlled bilateral sacroiliac joint injection Indications: Dayami is referred by Dr. Bridges for treatment of bilateral sacroiliac joint DJD Physician: Maxx Casillas Total Fluoroscopy time (seconds): 14 Total sedation minutes: 14 Complications: none Procedure in detail & Post-procedure care: Description of procedure Fluoroscopic guided, contrast controlled bilateral sacroiliac joint injection Following review of allergies and review of potential side effects and complications, including, but not necessarily limited to, infection, allergic reaction, local tissue breakdown, temporary as well as permanent nerve injury, paralysis, stroke and possible , the patient indicated that they understood and agreed to proceed. An informed consent was signed by the patient, witnessed by a nurse, and placed in the patient's chart. Additionally, other treatment options including modalities, medications, and physical therapy were reviewed with the patient. After review of previous anaesthesic history and IV conscious sedation the patient was deemed safe to proceed with today?s procedure with IV conscious sedation as ASA class II designation. Safety time-out was performed to confirm patient ID, procedure to be performed and site of procedure. IV sedation was accomplished with a combination of 2 mg of Versed administered by the RN after DO order, titrated to patient comfort during the course of the procedure while the patient remained responsive to all verbal commands In the prone position following sterile prep and drape of the pelvic region, the hyper lucency on in the inferior aspect of the sacroiliac joint was identified fluoroscopically the skin was anesthetized be a 25 gauge 1.5 inch needle with approximately 2cc of 1% lidocaine solution. At this point, a 22 gauge 3 in spi nal needle was atraumatically introduced and advanced under fluoroscopic guidance into the inferior aspect of the right sacroiliac joint. Following negative aspiration, approximately 0.3cc of Isovue-300 was injected confirming intra-articular placement without vascular uptake. Radiographic data, including multiple fluoroscopic views of the pelvis, reveals a spinal needle in the sacroiliac joint hyper lucent zone. Subsequent view show flow contrast tear superiorly and inferiorly within the joint capsule without vascular intrathecal uptake. At this point a total of 1cc of 0.5% Marcaine was combined with 1cc of 6mg of betamethasone was injected without incident. Attention was then refocused the left sacroiliac joint where the procedure was replicated. The procedure tolerated the procedure well without signs or symptoms of complications prior to transfer to the recovery area continued monitoring without incident. The patient was then transferred to the recovery area with a bur observed for an appropriate time after the injection. The patient reverted a vas score of 7 prior to the procedure and post-procedure vas of 1. Postop instructions The patient was provided with a pain like to continue to record the patient's response to the target specific procedure prior to the patient's follow-up visit with the referring physician. Additionally, specific post injection care instructions and a contact number to our office were provided if concerns arise regarding the possible complications associated with procedure are suspected.
== END 2022-01-24 10:05 | disposition home or self-care (01) ==
PROVIDERS: PCP Family Medicine; Referring Provider Physical Medicine & Rehabilitation; Visit Provider Physical Medicine & Rehabilitation
DX: M53.3 Sacrococcygeal disorders, not elsewhere classified (principal); M46.1 Sacroiliitis, not elsewhere classified
CPT/HCPCS: 27096; 99152; J0702; J2250

== ENCOUNTER → 2022-03-07 09:16 | Outpatient (CLI) | payer OTHER, SELFPAY ==
[2022-03-07 10:43] LABS: Hemoglobin A1C% w Est Avg Glu 6.1 % (4.0-6.0)
[2022-03-07 10:59] LABS: Cholesterol 244 mg/dL (140-199); Glucose 113 mg/dL (70-100); HDL Cholesterol 41 mg/dL (40-60); LDL Cholesterol Calculated 156 mg/dL (<100); Triglycerides 237 mg/dL (35-150)
== END ==
PROVIDERS: PCP Family Medicine; Referring Provider Physician Assistant; Visit Provider Physician Assistant
DX: E78.2 Mixed hyperlipidemia (principal); R73.01 Impaired fasting glucose
CPT/HCPCS: 36415; 80061; 82947; 83036

== ENCOUNTER → 2022-07-12 08:04 | Outpatient (CLI) | payer OTHER, SELFPAY ==
--- NOTE | 2022-07-12 | DI.RAD.S_ITS ---
PROCEDURE: FL HIP INJECTION MR/CT RT INDICATIONS: JOINT DISORDER, LABRAL TEAR TECHNIQUE: The indications, alternatives, benefits, risks, and complications of the procedure were explained to the patient. Written informed consent was obtained and placed in the chart. The hip was examined fluoroscopically with the legs fixed in slight internal rotation, and a site for needle placement chosen for entry into the hip joint from an anterior approach. Care was taken to locate the common femoral artery and vein beforehand. The skin was prepped and draped in a sterile fashion, and 1% Lidocaine infiltrated from skin down to joint capsule. A spinal needle was inserted into the joint, and a small amount of iodinated contrast media injected to confirm intra-articular placement of the needle tip. This was followed by approximately 12 mL dilute solution of a gadolinium containing MR contrast agent. The needle was removed and a dressing was applied. The patient was given postprocedural instructions and sent to the MR suite for imaging. COMPARISON: None. FINDINGS: A single fluoroscopic spot image demonstrates intra-articular location of injected iodinated contrast. IMPRESSION: Successful fluoroscopically guided administration of dilute Gadolinium solution into the hip joint for MR arthrogram. Dictated by: Abdulaziz Villagomez M.D. on 07/12/2022 at 9:26 Approved by: Abdulaziz Villagomez M.D. on 07/12/2022 at 9:27
--- NOTE | 2022-07-12 08:07 | DI.MRI.S_ITS ---
PROCEDURE: MR HIP RT W CON INDICATIONS: RULE OUT LABRAL TEAR TECHNIQUE: After the administration of 10 mL of dilute intra-articular Gadolinium contrast, coronal STIR of the bony pelvis; coronal and oblique axial T1 spin echo with fat saturation, axial T2 fast spin echo with fat saturation, sagittal T1 spin echo with and without fat saturation of the involved hip. COMPARISON: None. FINDINGS: Image quality: Excellent. Bones and joints: Mild bilateral hip joint osteoarthritic changes are seen with superior joint space narrowing, subchondral sclerosis and small marginal osteophyte formation. Mild prominence of superior right femoral head neck junction is seen which can be seen associated with CAM type femoral acetabular impingement. No intraosseous lesions or fractures. No avascular necrosis of the femoral head. The visualized lower lumbar spine appears normally aligned. The ligamental, neck, and labral plicae appear normal where visualized. Tendons and ligaments: Distal right gluteus medius and minimus tendinosis and low-grade partial-thickness tear at their insertions on greater trochanter is seen, without associated muscle atrophy. The nearby proximal iliotibial band also appears intact. The iliopsoas tendon appears intact, without adjacent bursal fluid collections or evidence for impingement syndrome. The origin of the hamstring tendon is intact at the ischial tuberosity, as well as the associated sacrotuberous ligament. The straight and reflected heads of the rectus femoris muscle origin appear intact, as well as the conjoint tendon. The ligamentum teres appears intact where visualized. Labrum and cartilage: Area of signal abnormality and contour irregularity with contrast extension is seen in superior anterior labrum at 12 to 1 o'clock position. No paralabral cysts. The alpha angle of the femur is within normal limits at less than 55 degrees. Soft tissues: Visualized muscles demonstrate normal bulk and internal signal. Quadratus femoris muscle demonstrates no internal edema to suggest ischiofemoral impingement. The proximal sciatic neurovascular bundle appears normal adjacent to the hamstring tendons. No free pelvic fluid. Bladder wall thickness is normal. Genitourinary structures and bowel loops appear normal where visualized. IMPRESSION: 1. Finding is suggestive of superior anterior right hip labral tear at 12 to 1 o'clock position. 2. Mild bilateral hip joint osteoarthritis. No hip fracture or dislocation. No evidence of avascular necrosis of femoral head. Mild prominence of superior right femoral head neck junction which can be seen associated with CAM type femoral acetabular impingement. 3. No intra-articular loose bodies. 4. Distal right gluteus medius and minimus tendinosis and low-grade partial-thickness tear. No other muscle or tendon signal abnormalities. Dictated by: Héctor Mckeon M.D. on 07/12/2022 at 9:54 Approved by: Héctor Mckeon M.D. on 07/12/2022 at 10:08
== END ==
PROVIDERS: PCP Family Medicine; Referring Provider Physical Medicine & Rehabilitation; Visit Provider Physical Medicine & Rehabilitation
DX: M25.851 Other specified joint disorders, right hip (principal); M16.0 Bilateral primary osteoarthritis of hip; S76.011A Strain of muscle, fascia and tendon of right hip, initial encounter
CPT/HCPCS: 27093; 73722; 77002

== ENCOUNTER → 2022-09-08 14:17 | Outpatient (CLI) | payer OTHER, SELFPAY ==
--- NOTE | 2022-09-08 14:18 | DI.RAD.S_ITS ---
PROCEDURE: XR KNEE LT 3V INDICATIONS: Left anterior medial knee pain TECHNIQUE: 3 views of the knee were acquired. COMPARISON: [facility], , KNEE 3V LEFT, 03/29/2011, 9:45. FINDINGS: Bones: No fractures or dislocations. No suspicious bony lesions. There is moderate femorotibial compartment narrowing and small tricompartmental osteophytes. The extent of degenerative changes markedly increased when compared with the prior study dated March 29, 2011. Soft tissues: No joint effusion. No suspicious soft tissue calcifications. IMPRESSION: Moderate left knee osteoarthritis. Dictated by: Yisel Shine M.D. on 09/08/2022 at 15:56 Approved by: Yisel Shine M.D. on 09/08/2022 at 15:57
== END ==
PROVIDERS: PCP Family Medicine; Referring Provider Physical Medicine & Rehabilitation; Visit Provider Physical Medicine & Rehabilitation
DX: M17.12 Unilateral primary osteoarthritis, left knee (principal)
CPT/HCPCS: 73562

== ENCOUNTER → 2023-01-01 17:22 | Outpatient (CLI) | payer OTHER, SELFPAY ==
--- NOTE | 2023-01-01 17:23 | DI.RAD.S_ITS ---
PROCEDURE: XR LUMBAR SPINE MIN 4V INDICATIONS: BACK PAIN TECHNIQUE: 5 views of the lumbar spine were acquired, including bilateral oblique views. COMPARISON: [facility], MR, MR LUMBAR SPINE WO CON, 08/08/2021, 15:38. [facility], CR, XR LUMBAR SPINE MIN 4V, 05/17/2020, 11:43. FINDINGS: Bones: 5 [id number] vertebrae are present. There is normal bony alignment. No vertebral body compression fractures. No suspicious bony lesions. Grade 1 anterolisthesis of for L2 on L3 and L3 on L4. There is degenerative disc disease, moderate at L2 on L3 and L3 on L4, mild at other levels. [id number] facet arthropathy throughout the lumbar spine. Soft tissues: Overlying bowel gas pattern is normal. No suspicious soft tissue calcifications. Oblique images: No pars defects. IMPRESSION: 1. Degenerative disc and facet disease in lumbar spine as described. Dictated by: Gabriel Baires M.D. on 01/01/2023 at 19:47 Approved by: Gabriel Baires M.D. on 01/01/2023 at 19:49
== END ==
PROVIDERS: PCP Family Medicine; Referring Provider Physical Medicine & Rehabilitation; Visit Provider Physical Medicine & Rehabilitation
DX: M47.27 Other spondylosis with radiculopathy, lumbosacral region (principal); M48.07 Spinal stenosis, lumbosacral region; M47.26 Other spondylosis with radiculopathy, lumbar region; M51.16 Intervertebral disc disorders with radiculopathy, lumbar region
CPT/HCPCS: 72110

== ENCOUNTER 2023-05-03 13:47 | Outpatient (CLI) | payer OTHER, SELFPAY ==
[2023-05-03] VITALS (9 sets, daily range): BP systolic 125–149; BP diastolic 72–99; PULSE 90–104; RESP 12–21; TEMP 36.2; O2SAT 97–99
--- NOTE | 2023-05-03 14:30 | DI.RAD.S_ITS ---
PROCEDURE: PAIN L/S FACET INJ/BLK 1ST [place] INDICATIONS: FACET ARTHROPATHY COMPARISON: [facility], , PAIN L/S FACET INJ/BLK 1ST [place], 08/19/2020, 15:20. FINDINGS: Fluoroscopic spot filming was performed to verify placement of spinal needles at the bilateral L4, L5, and S1 level(s), as labeled on the films. Appropriate location(s) of the needle tip(s) was confirmed by injection of iodinated contrast. IMPRESSION: Intraoperative fluoroscopy for bilateral L4, L5, S1 medial branch blocks. Dictated by: Angelina Butcher M.D. on 05/03/2023 at 17:35 Approved by: Angelina Butcher M.D. on 05/03/2023 at 17:36
[2023-05-03] MEDS: MIDAZOLAM 2 MG/2 ML VIAL IV (14:38)
[2023-05-03] MEDS: iopamidoL 15 ML VIAL 3 ML INJ (14:44)
[2023-05-03] MEDS: BUPIVACAINE 0.5% (PF) 10 ML VIAL 3 ML SUBCUT (14:45)
[2023-05-03] MEDS: LIDOCAINE 1% 20 ML 5 ML INJ (14:45)
--- NOTE | 2023-05-03 15:03 | PM.PROC.IR.1 ---
Date/Time/Diagnoses Date of procedure: 05/03/23 Time of procedure: 15:03 Pre-procedure diagnosis: 1. FACET ARTHROPATHY Post-procedure diagnosis: same Procedure Notes Procedure: 1. BILATERAL- L4, L5 and S1 DIAGNOSTIC MB BLOCKS with LA Anesthetic Indications: Dayami is referred by Dr. Bridges for treatment of Bilateral Axial LBP. Physician: Maxx Casillas Total Fluoroscopy time (seconds): 14 Total sedation minutes: 18 Complications: none Procedure in detail & Post-procedure care: DESCRIPTION OF PROCEDURE Fluoroscopically guided, contrast-controlled bilateral L4, L5 and S1 medial branch blocks with 0.5cc of 0.5% Marcaine. Following review of allergy and review of potential side effects and complications, including, but not necessarily limited to, infection, allergic reaction, local tissue breakdown, nerve injury, paralysis, stroke and possible , the patient indicated that the patient understood and agreed to proceed. An informed consent document was signed by the patient, witnessed by a nurse, and placed in the patient's chart. After review of previous anaesthesic history and IV conscious sedation the patient was deemed safe to proceed with today's procedure with IV conscious sedation as ASA class II designation. Safety time-out was performed to confirm patient ID, procedure to be performed and site of procedure. IV sedation was accomplished with a combination of 2mg of Versed was administered by the RN after DO order, titrated to patient comfort during the course of the procedure while the patient remained responsive to all verbal commands In the prone position, following sterile prep and drape of the lumbar region, the right L4, L5 and S1 anatomical location of the medial branch of the dorsal ramus was identified fluoroscopically. Subsequently an anesthetic skin wheal using 1% lidocaine solution was initiated at each of the anatomical spots. Subsequently then a 22-gauge 3.5-inch spinal needle was atraumatically introduced and advanced under fluoroscopic guidance at each of the corresponding sites at the right L4, L5 and S1 MB. After negative aspiration, 0.2cc of Isovue 200 was injected, confirming placement without vascular or intrathecal uptake. Subsequently then 0.5cc of 0.5% Marcaine solution was injected at each of the corresponding sites at the right L4, L5 and S1 medial branch locations. The identical procedure was replicated on the left. The patient tolerated the procedure well without signs or symptoms of complications prior to transfer to the recovery area continued monitoring without incident. Post-procedure, the patient was monitored initiating provocative activities to measure the amount of relief from block of the facetogenic pain. The patient reported a VAS of 7 prior to the procedure and a post-procedure VAS of 1. It has been a pleasure to assist in the diagnostic and therapeutic care of your patient. POST OP INSTRUCTIONS The patient was provided with a Pain Log to complete over the next several hours and subsequent days prior to the patient's follow up with the ordering physician. If the patient has shingle bolt cutter relief to the solution applied, then they may be a candidate for medial branch rhizotomy. The patient is aware, was provided, once again, with a Pain Log and will follow up with the referring physician for review and clinical correlation
== END 2023-05-03 15:14 | disposition home or self-care (01) ==
PROVIDERS: PCP Family Medicine; Referring Provider Physical Medicine & Rehabilitation; Visit Provider Physical Medicine & Rehabilitation
DX: M47.817 Spondylosis without myelopathy or radiculopathy, lumbosacral region (principal); M47.816 Spondylosis without myelopathy or radiculopathy, lumbar region
CPT/HCPCS: 64493; 64494; 99152; J2250

== ENCOUNTER 2023-07-10 15:04 | Outpatient (CLI) | payer OTHER, SELFPAY ==
[2023-07-10] VITALS (8 sets, daily range): BP systolic 116–146; BP diastolic 79–94; PULSE 87–101; RESP 13–25; TEMP 36.8; O2SAT 95–97
--- NOTE | 2023-07-10 16:00 | DI.RAD.S_ITS ---
PROCEDURE: PAIN L/S FACET INJ/BLK 1ST [place] INDICATIONS: FACET ARTHROPATHY COMPARISON: [facility], , PAIN L/S FACET INJ/BLK 1ST [place], 05/03/2023, 15:42. FINDINGS: Fluoroscopic spot filming was performed to verify placement of spinal needles at the L4, L5 S1 level(s), as labeled on the films. Appropriate location(s) of the needle tip(s) was confirmed by injection of iodinated contrast. IMPRESSION: As above Dictated by: Ramon Cook M.D. on 07/11/2023 at 11:32 Approved by: Ramon Cook M.D. on 07/11/2023 at 11:40
[2023-07-10] MEDS: MIDAZOLAM 2 MG/2 ML VIAL IV (16:44)
[2023-07-10] MEDS: iopamidoL 15 ML VIAL 3 ML INJ (16:49)
[2023-07-10] MEDS: LIDOCAINE 1% 20 ML 5 ML INJ (16:50)
[2023-07-10] MEDS: LIDOCAINE 2% INJ SDV 5ML 10 ML INJ (16:50)
--- NOTE | 2023-07-10 17:03 | P.PCN_ITS ---
Date/Time/Diagnoses Date of procedure: 07/10/23 Time of procedure: 17:03 Pre-procedure diagnosis: 1. FACET ARTHROPATHY Post-procedure diagnosis: same Procedure Notes Procedure: 1. BILATERAL- L4, L5 and S1 DIAGNOSTIC MB BLOCKS with SA Anesthetic Indications: Dayami is referred by Dr. Bridges for treatment of Bilateral Axial LBP. Physician: Maxx Casillas Total Fluoroscopy time (seconds): 12 Total sedation minutes: 15 Complications: none Procedure in detail & Post-procedure care: DESCRIPTION OF PROCEDURE Fluoroscopically guided, contrast-controlled bilateral L4, L5 and S1 medial branch blocks with 0.5cc of 2% Lidocaine. Following review of allergy and review of potential side effects and complications, including, but not necessarily limited to, infection, allergic reaction, local tissue breakdown, nerve injury, paralysis, stroke and possible , the patient indicated that the patient understood and agreed to proceed. An informed consent document was signed by the patient, witnessed by a nurse, and placed in the patient's chart. After review of previous anaesthesic history and IV conscious sedation the patient was deemed safe to proceed with today's procedure with IV conscious sedation as ASA class II designation. Safety time-out was performed to confirm patient ID, procedure to be performed and site of procedure. IV sedation was accomplished with a combination of 3mg of Versed was administered by the RN after DO order, titrated to patient comfort during the course of the procedure while the patient remained responsive to all verbal commands In the prone position, following sterile prep and drape of the lumbar region, the right L4, L5 and S1 anatomical location of the medial branch of the dorsal ramus was identified fluoroscopically. Subsequently an anesthetic skin wheal u sing 1% lidocaine solution was initiated at each of the anatomical spots. Subsequently then a 22-gauge 3.5-inch spinal needle was atraumatically introduced and advanced under fluoroscopic guidance at each of the corresponding sites at the right L4, L5 and S1 MB. After negative aspiration, 0.2cc of Isovue 200 was injected, confirming placement without vascular or intrathecal uptake. Subsequently then 0.5cc of 2% Lidocaine solution was injected at each of the corresponding sites at the right L4, L5 and S1 medial branch locations. The identical procedure was replicated on the left. The patient tolerated the procedure well without signs or symptoms of complications prior to transfer to the recovery area continued monitoring without incident. Post-procedure, the patient was monitored initiating provocative activities to measure the amount of relief from block of the facetogenic pain. The patient reported a VAS of 8 prior to the procedure and a post-procedure VAS of 1. It has been a pleasure to assist in the diagnostic and therapeutic care of your patient. POST OP INSTRUCTIONS The patient was provided with a Pain Log to complete over the next several hours and subsequent days prior to the patient's follow up with the ordering physician. If the patient has rn coronary care unit relief to the solution applied, then they may be a candidate for medial branch rhizotomy. The patient is aware, was provided, once again, with a Pain Log and will follow up with the referring physician for review and clinical correlation
== END 2023-07-10 17:22 | disposition home or self-care (01) ==
PROVIDERS: PCP Family Medicine; Referring Provider Physical Medicine & Rehabilitation; Visit Provider Physical Medicine & Rehabilitation
DX: M47.816 Spondylosis without myelopathy or radiculopathy, lumbar region (principal); M47.817 Spondylosis without myelopathy or radiculopathy, lumbosacral region
CPT/HCPCS: 64493; 64494; 99152; J2250

== ENCOUNTER → 2023-07-28 09:59 | Outpatient (CLI) | payer OTHER, SELFPAY ==
[2023-07-28 11:12] LABS: Add Manual Diff / Slide Review NO; Basophils Absolute Auto 100 /uL (0-100); Eosinophils Absolute Auto 200 /uL (0-450); Eosinophils Percent Auto 3.9 % (2-4); Hematocrit 37.7 % (36-46); Hemoglobin 12.8 g/dL (12.0-16.0); Lymphocytes Absolute Auto 2000 /uL (1100-4500); Lymphocytes Percent Auto 30.5 % (25-40); Mean Corpuscular HGB Conc 33.9 % (30-36); Mean Corpuscular Hemoglobin 31.1 PG (26-34); Mean Corpuscular Volume 91.7 fL (80-100); Monocytes Absolute Auto 400 /uL (0-900); Monocytes Percent Auto 6.2 % (3-14); Neutrophils Absolute Auto 3800 /uL (1500-7000); Neutrophils Percent Auto 58.4 % (50-75); Platelet Count 388 X10^3/uL (150-400); Red Blood Cell Count 4.11 X10^6/uL (4.0-5.2); Red Cell Distribution Width 13.6 % (11.6-14.8); White Blood Cell Count 6.4 X10^3/uL (4.5-11.0)
[2023-07-28 11:24] LABS: Hemoglobin A1C% w Est Avg Glu 5.7 % (4.0-6.0)
[2023-07-28 11:28] LABS: Alanine Aminotransferase 22 IU/L (<35); Albumin 4.2 g/dL (3.5-5.0); Albumin Globulin Ratio 1.4 (1.0-2.8); Alkaline Phosphatase 61 U/L (38-126); Aspartate Aminotransferase 23 IU/L (14-36); BUN Creatinine Ratio 21.2 (6-22); Blood Urea Nitrogen 14 mg/dL (7-17); Calcium 9.3 mg/dL (8.4-10.2); Carbon Dioxide 26 mmol/L (22-32); Chloride 106 mmol/L (98-107); Cholesterol 228 mg/dL (140-199); Estimated Glomerular Filt Rate > 60 mL/min (>60); Globulin 2.9 g/dL (1.7-4.1); Glucose 112 mg/dL (70-100); HDL Cholesterol 37 mg/dL (40-60); HEMOLYSIS < 15 (0-50); LDL Cholesterol Calculated 145 mg/dL (<100); Potassium 4.9 mmol/L (3.4-5.1); Sodium 139 mmol/L (137-145); Total Protein 7.1 g/dL (6.3-8.2); Triglycerides 232 mg/dL (35-150); Uric Acid 6.4 mg/dL (2.5-6.2)
== END ==
PROVIDERS: PCP Family Medicine; Referring Provider Physician Assistant; Visit Provider Physician Assistant
DX: I10 Essential (primary) hypertension (principal); E78.2 Mixed hyperlipidemia; R73.01 Impaired fasting glucose
CPT/HCPCS: 36415; 80053; 80061; 83036; 84443; 84550; 85025

== ENCOUNTER 2023-09-20 07:27 | Outpatient (CLI) | payer OTHER, SELFPAY ==
[2023-09-20] VITALS (12 sets, daily range): BP systolic 128–156; BP diastolic 83–99; PULSE 73–83; RESP 11–20; TEMP 36.9; O2SAT 97–100
--- NOTE | 2023-09-20 08:00 | DI.RAD.S_ITS ---
PROCEDURE: PAIN L/S MED/LAT N RFA BILAT INDICATIONS: BILATERAL L4/5, S1 FACET JOINTS MBB RFA COMPARISON: None. FINDINGS: Fluoroscopic spot filming was performed to verify placement of spinal needles at the bilateral L4-5 and L5-S1 level(s), as labeled on the films. Appropriate location(s) of the needle tip(s) was confirmed by injection of iodinated contrast. IMPRESSION: Intraoperative fluoroscopic support for bilateral lumbosacral facet joint RFA. Please see separate procedure note for further details. Dictated by: Larry Oneil M.D. on 09/20/2023 at 10:22 Approved by: Larry Oneil M.D. on 09/20/2023 at 10:23
[2023-09-20] MEDS: MIDAZOLAM 2 MG/2 ML VIAL IV (08:10)
[2023-09-20] MEDS: BUPIVACAINE 0.5% (PF) 10 ML VIAL 5 ML INJ (08:17)
[2023-09-20] MEDS: LIDOCAINE 1% 20 ML 5 ML INJ (08:17)
--- NOTE | 2023-09-20 08:57 | P.PCN_ITS ---
Date/Time/Diagnoses Date of procedure: 09/20/23 Time of procedure: 08:57 Pre-procedure diagnosis: 1. RECALCITRANT FACET ARTHROPATHY Post-procedure diagnosis: same Procedure Notes Procedure: 1. BILATERAL L4 AND L5 MEDIAL BRANCH RADIOFREQUENCY NEUROTOMY AND S1 DORSAL RAMUS BRANCH RADIOFREQUENCY NEUROTOMY Indications: Dayami is referred by Dr. Bridges for treatment of facet arthropathy. Physician: Maxx Casillas Total Fluoroscopy time (seconds): 12 Total sedation minutes: 41 Complications: none Procedure in detail & Post-procedure care: DESCRIPTION OF PROCEDURE Bilateral L4 and L5 medial branch radiofrequency neurotomy and bilateral S1 dorsal ramus radiofrequency neurotomy under fluoroscopy with conscious sedation. The patient is well known to this clinic having undergone previous facet injections with good but temporary relief. The patient has experienced appropriate, concordant relief with previous facet and median branch blocks but the patient's pain has been recalcitrant to further conservative measures. Therefore, based upon the patient's relief and persistent symptoms, the patient is considered an appropriate candidate for facet rhizotomy. All of the patient's questions regarding the risks versus benefits of the procedure, including, but not limited to, bleeding, infection, temporary as well as lasting nerve injury, paralysis, stroke, and , as well treatment alternatives were answered to satisfaction. After obtaining informed consent, denial of pertinent drug allergies, as well as being made aware of the potential risks of bleeding, infection, spinal cord trauma, paralysis, temporary and permanent nerve damage, seizure, stroke, and possible , the patient was brought to the fluoroscopy suite and positioned prone on the fluoroscopy table. The lumbar region was prepped in usual sterile fashion and covered with a fenestrated drape in the usual sterile fashion. Appropriate monitors applied including pulse oximeter, pulse, and blood pressure for regular monitoring throughout the procedure. After review of previous anaesthesic history and IV conscious sedation the patient was deemed safe to proceed with today's procedure with IV conscious sedation as ASA class II designation. Safety time-out was performed to confirm patient ID, procedure to be performed and site of procedure. IV sedation was accomplished with a combination of 2mg of Versed administered by the RN after DO order, titrated to patient comfort during the course of the procedure while the patient remained responsive to all verbal commands. After local infiltration using 1% lidocaine, under fluoroscopic guidance, a 10- cm RF insulated needle with a 10-mm active tip was positioned parallel to the junction of the right sacral ala and the superior articulating process where the S1 dorsal ramus resides. Needle placement was confirmed with motor stimulation of .5v on the right which produced local stimulation without radicular component. The stimulation was then increased to 2v with, once again, only local multifidus stimulation without radicular component. The needle was then removed and the identical procedure was performed along the length of the right L5 medial branch with motor stimulation at .7v on the right. The identical procedure was once again performed along the length of the right L4 medial branch with motor stimulation of .5v on the right. The medial branches were then anesthetised with 0.5% Marcaine. This was then followed by two discreet lesions performed at 80 degrees Celsius for 90 seconds each. The identical procedure was repeated on the left. The patient tolerated the procedure well without signs or symptoms of complications prior to transfer to the recovery area continued monitoring without incident. The patient was then transferred to the recovery area where they were observed for an appropriate period of time after the injection. The patient reported a VAS score of 6 prior to the procedure and a post-procedure VAS of 1. POST OP INSTRUCTIONS The patient was provided a Pain Log to continue to record the patient's response to the target-specific procedure prior to the patient's follow-up visit with the referring physician. Additionally, specific post-injection care instructions and a contact number to our office were provided if concerns arise regarding possible complications associated with the procedure are suspected.
== END 2023-09-20 09:00 | disposition home or self-care (01) ==
LOC: RAD 07:27
PROVIDERS: PCP Family Medicine; Referring Provider Physical Medicine & Rehabilitation; Visit Provider Physical Medicine & Rehabilitation
DX: M47.816 Spondylosis without myelopathy or radiculopathy, lumbar region (principal); M47.817 Spondylosis without myelopathy or radiculopathy, lumbosacral region
CPT/HCPCS: 64635; 64636; 99152; 99153; J2250

== ENCOUNTER → 2024-08-07 16:46 | Outpatient (CLI) | payer OTHER, SELFPAY ==
[2024-08-07 17:21] LABS: Add Manual Diff / Slide Review NO; Basophils Absolute Auto 100 /uL (0-100); Eosinophils Absolute Auto 300 /uL (0-450); Eosinophils Percent Auto 4.4 % (2-4); Hematocrit 40.2 % (36-46); Hemoglobin 13.7 g/dL (12.0-16.0); Lymphocytes Absolute Auto 2400 /uL (1100-4500); Lymphocytes Percent Auto 30.7 % (25-40); Mean Corpuscular HGB Conc 33.9 % (30-36); Mean Corpuscular Hemoglobin 31.1 PG (26-34); Mean Corpuscular Volume 91.6 fL (80-100); Monocytes Absolute Auto 400 /uL (0-900); Monocytes Percent Auto 5.1 % (3-14); Neutrophils Absolute Auto 4600 /uL (1500-7000); Neutrophils Percent Auto 58.8 % (50-75); Platelet Count 372 X10^3/uL (150-400); Red Blood Cell Count 4.39 X10^6/uL (4.0-5.2); Red Cell Distribution Width 12.9 % (11.6-14.8); White Blood Cell Count 7.8 X10^3/uL (4.5-11.0)
[2024-08-07 17:34] LABS: Alanine Aminotransferase 46 IU/L (<35); Albumin 4.9 g/dL (3.5-5.0); Albumin Globulin Ratio 1.6 (1.0-2.8); Alkaline Phosphatase 80 U/L (38-126); Aspartate Aminotransferase 45 IU/L (14-36); BUN Creatinine Ratio 20.3 (6-22); Blood Urea Nitrogen 16 mg/dL (7-17); Calcium 9.9 mg/dL (8.4-10.2); Carbon Dioxide 24 mmol/L (22-32); Chloride 104 mmol/L (98-107); Estimated Glomerular Filt Rate > 60 mL/min (>60); Glucose 105 mg/dL (70-100); HEMOLYSIS < 15 (0-50); Potassium 4.3 mmol/L (3.4-5.1); Sodium 139 mmol/L (137-145); Total Protein 7.9 g/dL (6.3-8.2)
[2024-08-07 18:04] LABS: TSH w/ Reflex to FT4 1.16 uIU/mL (0.47-4.68)
[2024-08-07 18:09] LABS: Ferritin 71 ng/mL (11-264); Testosterone 57.8 ng/dL (5.71-77.0)
[2024-08-07 18:24] LABS: Vitamin B12 562 pg/mL (239-931)
[2024-08-07 18:29] LABS: Follicle Stimulating Hormone 28.4 mIU/mL
[2024-08-07 18:44] LABS: Estradiol, Total 24.6 pg/mL
[2024-08-07 18:49] LABS: Progesterone, Total 0.87 ng/mL
== END ==
PROVIDERS: PCP Family Medicine; Referring Provider Physician Assistant; Visit Provider Physician Assistant
DX: R53.83 Other fatigue (principal); E66.01 Morbid (severe) obesity due to excess calories; M10.9 Gout, unspecified; R32 Unspecified urinary incontinence; I10 Essential (primary) hypertension; N95.1 Menopausal and female climacteric states
CPT/HCPCS: 36415; 80053; 82607; 82670; 82728; 83001; 84144; 84403; 84443; 84550; 85025

== ENCOUNTER → 2024-08-08 15:33 | Outpatient (CLI) | payer OTHER, SELFPAY ==
--- NOTE | 2024-08-08 15:35 | DI.MG.S_ITS ---
MM screening mammo BI: 08/08/2024. BI-RADS: 1 CLINICAL: 54-year old female for bilateral screening mammogram. Tyrer-Cuzick lifetime risk of 7.2%. No personal or first-degree family history of breast cancer. PRIOR EXAMS Outside priors 02/04/2016. MAMMOGRAPHY TECHNIQUE: 2D and 3D (tomosynthesis) digital mammographic views obtained, with additional images as needed for full coverage. Current study was also evaluated with a Computer Aided Detection (CAD) system. DENSITY A. The breasts are almost entirely fatty. MAMMOGRAPHY FINDINGS Bilateral: No suspicious mass, asymmetry, microcalcification, or other abnormality seen. IMPRESSION: * No evidence of malignancy. RECOMMENDATIONS Bilateral * Annual screening mammography. OVERALL ASSESSMENT CATEGORY BI-RADS-1: Negative. The [employer] recommends annual screening mammography beginning at age 40 for women with average risk of breast cancer. ELECTRONICALLY SIGNED: Nakia Edge M.D. on 08/11/2024 at 11:29:19 AM PT Interpreting Station ID: [id number]
--- NOTE | 2024-08-08 15:35 | DI.RAD.S_ITS ---
PROCEDURE: XR SHOULDER LT MIN 2V INDICATIONS: Left anterior shoulder pain; hx of injury due to fall 12/14 TECHNIQUE: Three views of the left shoulder were acquired. COMPARISON: None. FINDINGS: Bones: Mild irregularity of the anterior inferior osseous glenoid likely represents an old Bankart fracture. It is suboptimally visualized. Acromioclavicular and glenohumeral joints: Normal in width and alignment without arthritic change Soft tissues: No soft tissue swelling, calcification or mass. IMPRESSION: Malunified old Bankart fracture of the anterior inferior osseous glenoid . Patient may be predisposed to anterior dislocation. Dictated by: Luis Felipe Hinton M.D. on 08/11/2024 at 9:13 Approved by: Luis Felipe Hinton M.D. on 08/11/2024 at 9:15
== END ==
PROVIDERS: PCP Family Medicine; Referring Provider Family Medicine; Visit Provider Family Medicine
DX: Z87.828 Personal history of other (healed) physical injury and trauma (principal); M25.512 Pain in left shoulder; S42.142 Displaced fracture of glenoid cavity of scapula, left shoulder
CPT/HCPCS: 73030; 77063; 77067

== ENCOUNTER → 2024-09-05 08:14 | Outpatient (CLI) | payer OTHER, SELFPAY ==
--- NOTE | 2024-09-05 08:16 | DI.US.S_ITS ---
PROCEDURE: US ABDOMEN COMPLETE INDICATIONS: Elevated LFTs TECHNIQUE: Real-time scanning was performed of the abdominal and retroperitoneal organs, with image documentation. COMPARISON: None. FINDINGS: Liver: Liver measures 17.8 cm with steatosis. Gallbladder: Absent Biliary ducts: Intrahepatic bile ducts are non-dilated. Extrahepatic bile duct caliber measures 10 mm. Normal is 6-7 mm or less in diameter, or 10 mm or less post-cholecystectomy. Pancreas: Visualized portions of the pancreas are sonographically normal. Spleen: Spleen is normal in size and homogeneous in echotexture. Kidneys: Kidneys are normal in size and echotexture. Right kidney measures 11.8 cm long; left kidney measures 12.9 cm long. No hydronephrosis or nephrolithiasis. No solid masses. Aorta: Visualized aorta is normal in caliber at less than 3 cm. Iliacs: Proximal common iliac arteries are normal in caliber at less than 2.5 cm. IVC: Intrahepatic inferior vena cava is patent. Miscellaneous: No free abdominal fluid. IMPRESSION: Hepatomegaly with steatosis. Dictated by: Marti Borjas M.D. on 09/05/2024 at 12:08 Approved by: Marti Borjas M.D. on 09/05/2024 at 12:08
== END ==
PROVIDERS: PCP Family Medicine; Referring Provider Physician Assistant; Visit Provider Physician Assistant
DX: K76.0 Fatty (change of) liver, not elsewhere classified (principal); R74.8 Abnormal levels of other serum enzymes; E78.2 Mixed hyperlipidemia; R73.01 Impaired fasting glucose; Z68.41 Body mass index [BMI] 40.0-44.9, adult
CPT/HCPCS: 76700

== ENCOUNTER 2024-10-16 15:03 | Outpatient (CLI) | payer OTHER, SELFPAY ==
[2024-10-16] VITALS (8 sets, daily range): BP systolic 121–169; BP diastolic 79–98; PULSE 83–99; RESP 16; TEMP 36; O2SAT 95–100
[2024-10-16] MEDS: MIDAZOLAM 2 MG/2 ML VIAL IV (16:34)
[2024-10-16] MEDS: iopamidoL 15 ML VIAL 3 ML INJ (16:38)
[2024-10-16] MEDS: BETAMETHASONE 30 MG/5 ML MDV 12 MG INJ (16:38)
[2024-10-16] MEDS: BUPIVACAINE 0.5% (PF) 10 ML VIAL 2 ML INJ (16:39)
--- NOTE | 2024-10-16 16:59 | PM.PROC.IR.1 ---
Date/Time/Diagnoses Date of procedure: 10/16/24 Time of procedure: 16:59 Pre-procedure diagnosis: Sacroiliac joint pain/DJD Post-procedure diagnosis: same Procedure Notes Procedure: Fluoroscopically guided contrast controlled right sacroiliac joint injection Indications: Dayami is referred by Dr. Bridges for treatment of right sacroiliac joint DJD Physician: Maxx Casillas Total Fluoroscopy time (seconds): 13 Total sedation minutes: 14 Complications: none Procedure in detail & Post-procedure care: DESCRIPTION OF PROCEDURE Fluoroscopically guided, contrast controlled right sacroiliac joint injectio Following review of allergies and review of potential side effects and complications, including, but not necessarily limited to, infection, allergic reaction, local tissue breakdown, temporary as well as permanent nerve injury, paralysis, stroke and possible , the patient indicated that they understood and agreed to proceed. An informed consent was signed by the patient, witnessed by a nurse, and placed in the patient's chart. Additionally, other treatment options including modalities, medications, and physical therapy were reviewed with the patient. After review of previous anaesthesic history and IV conscious sedation the patient was deemed safe to proceed with today?s procedure with IV conscious sedation as ASA class II designation. Safety time-out was performed to confirm patient ID, procedure to be performed and site of procedure. IV sedation was accomplished with a combination of 2mg of Versed was administered by the RN after DO order, titrated to patient comfort during the course of the procedure while the patient remained responsive to all verbal commands In the prone position following sterile prep and drape of the pelvic region, the hyper lucency on in the inferior aspect of the sacroiliac joint was identified fluoroscopically the skin was anesthetized be a 25 gauge 1 eventual with approximately 2 cc of 1% lidocaine solution. At this point, a 22 gauge 3 in spinal needle was atraumatically introduced and advanced under fluoroscopic guidance into the inferior aspect of the right sacroiliac joint. Following negative aspiration, approximately 0.3cc of Isovue-300 was injected confirming intra-articular placement without vascular uptake. Radiographic data, including multiple fluoroscopic views of the pelvis, reveals a spinal needle in the sacroiliac joint hyper lucent zone. Subsequent view show flow contrast tear superiorly and inferiorly within the joint capsule without vascular intrathecal uptake. At this point a total of 1cc of 0.5% Marcaine was combined with 2cc of 12mg of betamethasone was injected without incident. The procedure tolerated the procedure well without signs or symptoms of complications prior to transfer to the recovery area continued monitoring without incident. The patient was then transferred to the recovery area with a bur observed for an appropriate time after the injection. The patient reverted a vas score of 7 prior to the procedure and post-procedure vas of 1. POSTOP INSTRUCTIONS The patient was provided with a pain like to continue to record the patient's response to the target specific procedure prior to the patient's follow-up visit with the referring physician. Additionally, specific post injection care instructions and a contact number to our office were provided if concerns arise regarding the possible complications associated with procedure are suspected.
== END 2024-10-16 17:05 | disposition home or self-care (01) ==
LOC: RAD 15:04
PROVIDERS: PCP Family Medicine; Referring Provider Family Medicine; Visit Provider Physical Medicine & Rehabilitation
DX: M46.1 Sacroiliitis, not elsewhere classified (principal); M53.3 Sacrococcygeal disorders, not elsewhere classified
CPT/HCPCS: 27096; 99152; J0702; J2250

== ENCOUNTER → 2025-01-02 15:13 | Outpatient (CLI) | payer OTHER, SELFPAY ==
[2025-01-02 15:53] LABS: Hemoglobin A1C% w Est Avg Glu 6.2 % (4.0-6.0)
[2025-01-02 16:09] LABS: Alanine Aminotransferase 30 IU/L (<35); Albumin 4.5 g/dL (3.5-5.0); Albumin Globulin Ratio 1.6 (1.0-2.8); Alkaline Phosphatase 73 U/L (38-126); Blood Urea Nitrogen 21 mg/dL (7-17); Calcium 9.7 mg/dL (8.4-10.2); Carbon Dioxide 23 mmol/L (22-32); Chloride 102 mmol/L (98-107); Estimated Glomerular Filt Rate > 60 mL/min (>60); Globulin 2.8 g/dL (1.7-4.1); Glucose 149 mg/dL (70-99); HEMOLYSIS < 15 (0-50); Potassium 4.3 mmol/L (3.4-5.1); Sodium 137 mmol/L (137-145); Total Protein 7.3 g/dL (6.3-8.2)
[2025-01-02 16:41] LABS: TSH w/ Reflex to FT4 1.27 uIU/mL (0.47-4.68)
== END ==
PROVIDERS: PCP Family Medicine; Referring Provider Family Medicine; Visit Provider Student in an Organized Health Care Education/Training Program
DX: R74.8 Abnormal levels of other serum enzymes (principal); G47.30 Sleep apnea, unspecified; R73.03 Prediabetes
CPT/HCPCS: 36415; 80053; 83036; 84443

== ENCOUNTER 2025-02-19 15:15 | Outpatient (RCR) | payer OTHER, SELFPAY ==
--- NOTE | 2024-12-02 16:00 | PT.OIE ---
Current Diagnoses Other specified disorders of muscle (12/02/24) Urge incontinence (12/02/24) Pelvic muscle wasting (12/02/24) Female genital prolapse, unspecified (12/02/24) Past Medical History (Last Reviewed 10/03/24 @ 15:01 by Maxx Casillas DO) Bilateral sacroiliitis Chicken pox (1975) Chronic back pain (1992) Chronic headaches (1979) Concussion (1974) Degenerative joint disease of both hips Depression (1989) Facet arthropathy, lumbosacral Fibromyalgia (09/02/14) Fibromyalgia (2014) Foot pain (2015) Foraminal stenosis of lumbosacral region Fractures (2015) Glaucoma (increased eye pressure) (2013) IUD strings lost Lumbosacral spondylosis with radiculopathy Migraines (1980) Myalgia and myositis, unspecified Occipital neuralgia (2010) Osteoarthritis (2004) Pelvic floor dysfunction in female Post-cholecystectomy syndrome (2009) Prediabetes (2013) Premenstrual dysphoria (2006) Rosacea (2012) Sacrococcygeal disorders, not elsewhere classified Shingles (2008) Shoulder impingement Sleep apnea (2011) Past Surgical History (Last Reviewed 10/03/24 @ 15:01 by Maxx Casillas DO) Anesthesia Status post delivery (2000) Status post delivery (2003) Status post cholecystectomy (1991) Status post tonsillectomy and adenoidectomy (1975) Visit Care Team Role Provider Type Davon Bridges MD Family Provider Physician Primary Care Provider Specialty: Family Practice Address: [address] [place] [address], [id number] Email: [email or web address] Anais Khanna MD Attending Provider Physician Referring Provider Specialty: CLINICAL DATA MANAGEMENT DIRECTOR Address: [address] [place] [address], [id number] Email: [email or web address] Physical Therapy Initial Evaluation PT OP: Pelvic Health Start: 12/02/24 09:38 Freq: Status: Active Protocol: Document 12/02/24 15:22 [facility] (Rec: 12/02/24 15:48 [facility] [id number]) Out-Patient Physical Therapy Visit Information Visit Information Visit Type Initial Evaluation Visit Start Time 15:15 Visit Stop Time 16:00 Visit Number 1 Evaluation Information Evaluation Date 12/02/24 Current Condition History of Current Condition Onset Date 6 months ago. Current Complaints pelvic organ prolapse, pelvic heaviness and pressure, dyspareunia History of Current Dayami began noting symptoms of pelvic organ prolapse 6 Condition months ago. 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 She reports she often holds her urine as long as she can so she doesn't have to take off her lab coat and gloves. She voids approximately 2 times per day at work. She is drinking 8 glasses of water per day. She has started trying to exercise and is walking on the treadmill. She is noting the prolapse at times with walking but this is more intermittent. Dayami also reports c/o right sided hip pain and that her right hip is much weaker than her left. Dayami describes pain with intercourse and the pain is making her avoid intercourse. She does use a estring but does not have it in now as she was going to have her IUD removed surgically. She does have vaginal estrogen cream to use however she reports this make her tissue feel itchy with use. Treatment Goals Patient/Caregiver Improve pelvic floor strength and decrease c/o pelvic Goals pain with intercourse Patient Questionnaires Pelvic Pain and Urgency/Frequency Patient Symptom Scale Pelvic Pain Score 15 Pelvic Floor Assessment Urine Pelvic Floor Surgery No Urinary Symptoms Urge Sensation,Prolapse,Pain Other Urinary pain during and after intercourse, pt feels her tissue Symptoms becomes very irritated with intercourse Leakage Size Medium Leakage Cause Urge Other Leakage Causes leakage happens if she waits too long to void and then she will experience urgency on the way to the bathroom Leaks Per Day 1-2 Voiding Frequency every 2-3 hours Nocturia 1 Pelvic Clock Pelvic Clock 12-3 Atrophy Pelvic Clock 3-6 Atrophy,Guarding Pelvic Clock 6-9 Atrophy,Guarding Pelvic Clock 9-12 Atrophy Pelvic Clock Other levator ani guarding noted bilaterally on the side alejandro of the pelvic floor. Prolapse Cystocele Grade 2 Perineal Descent Resting Absent Bearing Absent Contraction Ability Voluntary Weak Contraction Voluntary Relaxation Weak Manual Muscle 2 Testing Left Manual Muscle 2 Testing Right Manual Muscle 1 Testing Anterior Manual Muscle 2 Testing Posterior Muscle Endurance ( 5 Seconds) Comments Pelvic Floor muscle guarding and spasm limits pts ability to sustain Comments a pelvic floor contraction Hip Goniometric Range of Motion Hip Left Hip ROM WFL No Testing Position Supine External Rotation 30 Comments iliopsoas tightness Right Hip ROM WFL No External Rotation 30 Comments iliopsoas tightness Therapeutic Exercises Supine Exercises happy baby Reps/Minutes hold 30 seconds to 1 min modified pelvic floor squat Reps/Minutes hold 30 sec - 1 min pelvic floor long holds with adductor assist Reps/Minutes 10 reps holding 5 seconds and resting 10 seconds Other Exercises brianna pose with support Reps/Minutes hold 1-2 minutes Self-Care/Home Management Treatment Education Patient Education Home Exercise Program Other Education pt was given handouts for HEP bioidentical estrogen cream was discussed as an option for vaginal estrogen cream to talk with her doctor about as her cream is causing burning/ itching of the tissue work body mechanics was discussed as Dayami sits on a stool all day for her job and has to have her body turned at times to look in the microscope Physical Therapy Assessment Rehab Potential Rehabilitation Good Potential Evaluation Complexity Number of Personal 1-2 Factors/ Comorbidities Number of Body 3 Systems Impaired Clinical Evolving Presentation at Evaluation Impairments Impairments Functional Activities,Functional Mobility,Pain,Soft Tissue Mobility,Strength Other Impairments urinary urgency, pelvic floor weakness with pelvic organ prolapse, dyspareunia Goals 3 Impairment pelvic pain and guarding of the lateral alejandro of the levator ani Alf Goal (LTG) Dayami is able to relax her pelvic floor at rest to baseline on EMG biofeedback and reports a overall reduction in pelvic pain and heaviness and is able to resume intercourse LTG Duration 8-12 weeks 2 Impairment pelvic floor weakness and decreased endurance Short Term Goal (STG Dayami is educated on a HEP for pelvic floor strength ) and endurance training STG Duration 4 weeks Alf Goal (LTG) Dayami is able to sustain a pelvic floor contraction in supine x 10 seconds and is able to increase her strength by at least 1 muscle grade LTG Duration 8-12 weeks 1 Impairment pelvic organ prolapse with c/o pelvic pressure and heaviness Short Term Goal (STG Dayami is educated on pelvic decompression to take ) pressure off her pelvic organs following sitting for her full day with downward pressure STG Duration 4 weeks Alf Goal (LTG) Dayami reports a overall reduction in pelvic organ pressure and heaviness LTG Duration 8-12 weeks Assessment Summary Assessment 54 yo female with chief complaints of pelvic organ prolapse and pelvic heaviness that has become worse in the past 6 months. 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 She reports she sits on a stool with her feet propped on the bottom of the stool. She often has to twist to look into her microscope. It is with sitting that she notices the pelvic pressure the most. She also reports that she is gloved and in a lab coat for her job so she will delay using the bathroom as long as she can prior to voiding. It is in these times where she has waited too long to void that she will notice urgency and leakage on the way to the bathroom. She does at times feel the pelvic pressure in standing but this is intermittent in nature. [place] has become painful and she feels her vaginal tissue becomes very irritated with intercourse. Dayami also describes a hx of SI pain and she experiences right sided anterior hip pain that limits her exercise level. She reports she is working on losing weight and has returned to treadmill walking at the gym. With exam today there is a 2nd degree cystocele felt. Dayami tests weak for all alejandro of the levator ani 2/5 MMT except the anterior wall which she tests 1/5 MMT. She has limited endurance of pelvic floor contractions to 4-5 seconds only. She is guarded on B lateral alejandro and has difficulty relaxing the levator ani. There is tenderness to palpation laterally. Her vaginal tissue is atrophied and dry. She is tight in her hip musculature especially the piriformis and iliopsoas bilaterally. Dayami is a good candidate for pelvic PT working on pelvic floor endurance and strength training, hip stretches to help both with the hip pain as well as to help relax the pelvic floor and then progressing to hip stability exercises. Physical Therapy Plan Frequency and Duration Frequency of 1x/Week Treatment Duration of 8 treatment (weeks) Plan of Care Start 12/02/24 Date Plan of Care End 01/27/25 Date Next Visit Focus/Plan Next Note Type Treatment Note Next Visit Plan review stretches for the hips and add in piriformis stretch and hook lying hip abduction with theraband begin EMG biofeedback next visit
--- NOTE | 2024-12-16 16:22 | PT.OTN ---
Current Diagnoses Other specified disorders of muscle (12/16/24) Urge incontinence (12/16/24) Pelvic muscle wasting (12/16/24) Female genital prolapse, unspecified (12/16/24) Physical Therapy Treatment Note PT OP: Pelvic Health Start: 12/02/24 09:38 Freq: Status: Active Protocol: Document 12/16/24 15:21 [facility] (Rec: 12/16/24 16:20 [facility] [id number]) Out-Patient Physical Therapy Visit Information Visit Information Visit Type Treatment Note Visit Start Time 15:20 Visit Stop Time 16:05 Visit Number 2 OP-PT Subjective Patient Comments Patient Comments Dayami notes she did well with her pelvic floor over the weekend, she did a lot of biking in [place] and pelvic floor did well but she had a increase in her right sided hip pain Hip Strength Hip Manual Muscle Testing Right Adduction 2+ Poor+ Comments pain attempting to hold right leg in hip abduction Therapeutic Exercises Supine Exercises pelvic floor long holds Reps/Minutes x 10 reps holding x 10 seconds and resting x 10 seconds Comments 6.7 and 11.9 uv max hooklying hip abduction with theraband Reps/Minutes 2 x 10 reps level 3 TB happy baby Supine Exercise Name HEP modified pelvic floor squat Supine Exercise Name HEP pelvic floor long holds with adductor assist Supine Exercise Name average resting tone is 5.0 initially Reps/Minutes 10 reps holding 5 seconds and resting 10 seconds Comments 8.3 and max of 14 Physical Therapy Assessment Goals 3 Impairment pelvic pain and guarding of the lateral alejandro of the levator ani Chief Procurement Officer Goal (LTG) Dayami is able to relax her pelvic floor at rest to baseline on EMG biofeedback and reports a overall reduction in pelvic pain and heaviness and is able to resume intercourse LTG Duration 8-12 weeks 2 Impairment pelvic floor weakness and decreased endurance Short Term Goal (STG Dayami is educated on a HEP for pelvic floor strength ) and endurance training STG Duration 4 weeks Chief Procurement Officer Goal (LTG) Dayami is able to sustain a pelvic floor contraction in supine x 10 seconds and is able to increase her strength by at least 1 muscle grade LTG Duration 8-12 weeks 1 Impairment pelvic organ proplapse with c/o pelvic pressure and heaviness Short Term Goal (STG Dayami is educated on pelvic decompression to take ) pressure off her pelvic organs following sitting for her full day with downward pressure STG Duration 4 weeks Senior Living Goal (LTG) Dayami reports a overall reduction in pelvic organ pressure and heaviness LTG Duration 8-12 weeks Assessment Summary Assessment Dayami reports she feels as if she doesn't have good balance when walking on the treadmill. She tests weak 2/5 MMT for the right hip. Clam shells are painful. I started her with hooklying hip abduction with L3 TB and she tolerated this well. Her resting tone on EMG biofeedback was elevated at 5 uv but having the band around her thighs helps her to relax her hip and her resting tone dropped to baseline. Physical Therapy Plan Frequency and Duration Frequency of 1x/Week Treatment Duration of 8 treatment (weeks) Plan of Care Start 12/02/24 Date Plan of Care End 01/27/25 Date Next Visit Focus/Plan Next Note Type Treatment Note Next Visit Plan continue with pelvic floor and hip stabilization exercises, add in bridges with hip abduction next visit
--- NOTE | 2024-12-30 16:00 | PT.OTN ---
Current Diagnoses Other specified disorders of muscle (12/30/24) Urge incontinence (12/30/24) Pelvic muscle wasting (12/30/24) Female genital prolapse, unspecified (12/30/24) Physical Therapy Treatment Note PT OP: Pelvic Health Start: 12/02/24 09:38 Freq: Status: Active Protocol: Document 12/30/24 14:36 [facility] (Rec: 12/30/24 15:19 [facility] [id number]) Out-Patient Physical Therapy Visit Information Visit Information Visit Type Treatment Note Visit Start Time 14:35 Visit Stop Time 16:00 Visit Number 3 OP-PT Subjective Patient Comments Patient Comments she is still hurting in her hip still has had 2 MRI's that show a tear of the gluteus medius and minimus tendon she has a referral for ortho. SHe isn't noticing her bladder as much sitting on the stools at work. Therapeutic Exercises Supine Exercises templates for eccentric control Reps/Minutes 5 min working on eccentric lowering pelvic floor long holds Comments 5.7 uv 8.4 max hooklying hip abduction with theraband Reps/Minutes 10 reps Comments isometric only pelvic floor long holds with adductor assist Supine Exercise Name resting tone 6.5 uv Reps/Minutes 10 sec on and 10 sec off Comments 10.1 Standing Exercises standing quad stretch Side bilateral Reps/Minutes hold 30+ sec x 2 Self-Care/Home Management Treatment Education Patient Education Home Exercise Program,Pain Management Other Education time was spent discussing right hip pain and pt's MRI showing possible gluteus medius tear added in standing quad stretch with pictures Physical Therapy Assessment Goals 3 Impairment pelvic pain and guarding of the lateral alejandro of the levator ani Fpc Goal (LTG) Dayami is able to relax her pelvic floor at rest to baseline on EMG biofeedback and reports a overall reduction in pelvic pain and heaviness and is able to resume intercourse LTG Duration 8-12 weeks 2 Impairment pelvic floor weakness and decreased endurance Short Term Goal (STG Dayami is educated on a HEP for pelvic floor strength ) and endurance training [facility] 4 weeks Fpc Goal (LTG) Dayami is able to sustain a pelvic floor contraction in supine x 10 seconds and is able to increase her strength by at least 1 muscle grade LTG Duration 8-12 weeks 1 Impairment pelvic organ proplapse with c/o pelvic pressure and heaviness Short Term Goal (STG Dayami is educated on pelvic decompression to take ) pressure off her pelvic organs following sitting for her full day with downward pressure STG Duration 4 weeks Fpc Goal (LTG) Dayami reports a overall reduction in pelvic organ pressure and heaviness LTG Duration 8-12 weeks Assessment Summary Assessment Dayami was feeling increased hip pain with hooklying hip abduction with theraband so we changed it today to isometric only. She was more guarded today in her pelvic floor with EMG biofeedback and this may be related to the increased hip pain she was feeling. She has a referral into a ortho to discuss ongoing right sided hip pain. She has to sit all day for her job and I did add in a standing quad stretch for her to help open up the anterior hip as she is very tight in the hip flexors and quads Physical Therapy Plan Frequency and Duration Frequency of 1x/Week Treatment Duration of 8 treatment (weeks) Plan of Care Start 12/02/24 Date Plan of Care End 01/27/25 Date Next Visit Focus/Plan Next Note Type Treatment Note Next Visit Plan trial of gentle wind shield wipers next visit, add in bridges and TA with carson, continue progressing pelvic floor strength
--- NOTE | 2025-01-13 17:19 | PT.OTN ---
Current Diagnoses Other specified disorders of muscle (01/13/25) Urge incontinence (01/13/25) Pelvic muscle wasting (01/13/25) Female genital prolapse, unspecified (01/13/25) Physical Therapy Treatment Note PT OP: Pelvic Health Start: 12/02/24 09:38 Freq: Status: Active Protocol: Document 01/13/25 14:30 [facility] (Rec: 01/13/25 15:15 [facility] [id number]) Out-Patient Physical Therapy Visit Information Visit Information Visit Type Treatment Note Visit Start Time 14:30 Visit Stop Time 15:15 Visit Number 4 OP-PT Subjective Patient Comments Patient Comments pt notes she slacked off her pelvic floor work this past week and she can tell her bladder is dropped down a little, she also didn't use the estrodial this week. She has a appt 02/12 to see a orthopedic surgeon Therapeutic Exercises Supine Exercises templates for eccentric control Reps/Minutes 5 min working on eccentric lowering pelvic floor long holds Reps/Minutes 10 reps holding and 10 sec relax Comments 13.6 and max of 21.6 pelvic floor long holds with adductor assist Supine Exercise Name resting tone 4.5 uv Reps/Minutes 10 sec on and 10 sec off Comments 12.1 Self-Care/Home Management Treatment Education Patient Education Home Exercise Program,Pain Management Other Education HEP as well as discussion of hip care and desk/stool set up for work related activity Physical Therapy Assessment Goals 3 Impairment pelvic pain and guarding of the lateral alejandro of the levator ani Printer'S Assistant Goal (LTG) Dayami is able to relax her pelvic floor at rest to baseline on EMG biofeedback and reports a overall reduction in pelvic pain and heaviness and is able to resume intercourse LTG Duration 8-12 weeks 2 Impairment pelvic floor weakness and decreased endurance Short Term Goal (STG Dayami is educated on a HEP for pelvic floor strength ) and endurance training STG Duration 4 weeks Printer'S Assistant Goal (LTG) Dayami is able to sustain a pelvic floor contraction in supine x 10 seconds and is able to increase her strength by at least 1 muscle grade LTG Duration 8-12 weeks 1 Impairment pelvic organ proplapse with c/o pelvic pressure and heaviness Short Term Goal ([facility] Dayami is educated on pelvic decompression to take ) pressure off her pelvic organs following sitting for her full day with downward pressure STG Duration 4 weeks Half-Way Goal (LTG) Dayaim reports a overall reduction in pelvic organ pressure and heaviness LTG Duration 8-12 weeks Assessment Summary Assessment Alysa did better today with improved average contraction on EMG biofeedback, she is feeling increased prolapse today but feels this may be due to walking stairs in [place] over the weekend. Her hip is most likely creating tone in her pelvic floor as it is difficult for her to fully relax. She is seeing a ortho for her hip pain soon. In the mean time I have held off on hip exercises as they have bothered her. Physical Therapy Plan Frequency and Duration Frequency of 1x/Week Treatment Duration of 8 treatment (weeks) Plan of Care Start 12/02/24 Date Plan of Care End 01/27/25 Date Next Visit Focus/Plan Next Note Type Treatment Note Next Visit Plan trial of gentle wind shield wipers next visit, add in bridges and TA with carson, continue progressing pelvic floor strength
--- NOTE | 2025-02-19 16:10 | PT.OPPOC ---
Physical, Occupational & Speech Therapy At [facility] Current Diagnoses Other specified disorders of muscle (02/19/25) Urge incontinence (02/19/25) Pelvic muscle wasting (02/19/25) Female genital prolapse, unspecified (02/19/25) Visit Care Team Role Provider Type Davon Bridges MD Family Provider Physician Primary Care Provider Specialty: Family Practice Address: [address] [place] [address] [address], [place], [address] Email: [email or web address] Anais Khanna MD Attending Provider Physician Referring Provider Specialty: PRODUCTION FLOATER Address: [address] [place] [address]. [address] [place] [address], [address] Email: [email or web address] Plan Of Care PT OP: Pelvic Health Start: 12/02/24 09:38 Freq: Status: Active Protocol: Document 02/19/25 15:30 [facility] (Rec: 02/19/25 15:58 [facility] [id number]) Out-Patient Physical Therapy Visit Information Visit Information Visit Type Progress Note Visit Start Time 15:15 Visit Stop Time 15:55 Visit Number 5 OP-PT Subjective Patient Comments Patient Comments she was sick last week and was throwing up she noted increased bladder pressure but overall it has been better. She is using her estrogen cream now as well. Therapeutic Exercises Supine Exercises pelvic floor long holds Supine Exercise Name 4.0 resting tone Reps/Minutes 10 reps holding and 10 sec relax pelvic floor long holds with adductor assist Supine Exercise Name resting tones 5 uv Reps/Minutes 10 reps holding 10 seconds and 10 sec off Comments 8.9 12.8 Self-Care/Home Management Treatment Education Patient Education Home Exercise Program,Pain Management Other Education discussion of MRI findings for right hip labral repair discussion of using ice over the right hip as it is flared after the MRI pt to continue with pelvic floor stretches as long as it does not aggravate her hip Physical Therapy Assessment Goals 3 Impairment pelvic pain and guarding of the lateral alejandro of the levator ani Senior Account Director Goal (LTG) Dayami is able to relax her pelvic floor at rest to baseline on EMG biofeedback and reports a overall reduction in pelvic pain and heaviness and is able to resume intercourse LTG Duration 8-12 weeks 2 Impairment pelvic floor weakness and decreased endurance Short Term Goal ([facility] Dayami is educated on a HEP for pelvic floor strength ) and endurance training good progress STG Duration 4 weeks Snf Goal (LTG) Dayami is able to sustain a pelvic floor contraction in supine x 10 seconds and is able to increase her strength by at least 1 muscle grade good progress LTG Duration 8-12 weeks 1 Impairment pelvic organ proplapse with c/o pelvic pressure and heaviness Short Term Goal ([facility] Dayami is educated on pelvic decompression to take ) pressure off her pelvic organs following sitting for her full day with downward pressure goal met STG Duration 4 weeks Snf Goal (LTG) Dayami reports a overall reduction in pelvic organ pressure and heaviness Dayami has been noting a overall decrease in symptoms, she was sick last week and was vomiting and this exacerbated her symptoms LTG Duration 8-12 weeks Assessment Summary Assessment Dayami is doing better overall with pelvic floor symptoms of pelvic pressure and heaviness. She was sick last week with vomiting and did feel pressure in her pelvis afterwards but it is slowly getting better again. I have tried including hip strengthening for her to help with stability however she has not been able to tolerate this due to hip pain on the right hip. A recent MRI does show a labral tear and she is considering surgery. She would benefit from continued PT to work on strengthening and endurance training of the pelvic floor. Physical Therapy Plan Frequency and Duration Frequency of 1x/Week Treatment Duration of 8 treatment (weeks) Plan of Care Start 02/19/25 Date Plan of Care End 04/16/25 Date Next Visit Focus/Plan Next Note Type Treatment Note Next Visit Plan trial of NMES for the pelvic next visit and continue with pelvic floor endurance holds Plan of Care Dates Plan of Care Start Date 02/19/25 Plan of Care End Date 04/16/25 Electronically Signed by: Hansa Nair, PT 02/19/25 [id number] If you are in agreement with this Plan of Care, please return a signed and dated copy. I have reviewed this Plan of Care and certify that the skilled therapy services above are required to meet the patient?s needs. Physician Signature Date Printed Name and Credentials Clinical Instructor Signature Printed Name and Credentials
--- NOTE | 2025-03-17 08:34 | PT.OPDS ---
Current Diagnoses Other specified disorders of muscle (02/19/25) Urge incontinence (02/19/25) Pelvic muscle wasting (02/19/25) Female genital prolapse, unspecified (02/19/25) Visit Care Team Role Provider Type Davon Bridges MD Family Provider Physician Primary Care Provider Specialty: Family Practice Address: [address] [place] [address], [address], [address] Email: [email or web address] Anais Khanna MD Attending Provider Physician Referring Provider Specialty: [employer] Address: [address] [place] [address], [address], [place], [address] Email: [email or web address] Visit Number Visit Number 5 Discharge Summary PT OP: Pelvic Health Start: 12/02/24 09:38 Freq: Status: Active Protocol: Document 03/17/25 08:32 [facility] (Rec: 03/17/25 08:34 [facility] [id number]) Physical Therapy Assessment Goals 3 Impairment pelvic pain and guarding of the lateral alejandro of the levator ani Family Coach Goal (LTG) Dayami is able to relax her pelvic floor at rest to baseline on EMG biofeedback and reports a overall reduction in pelvic pain and heaviness and is able to resume intercourse no change LTG Duration 8-12 weeks 2 Impairment pelvic floor weakness and decreased endurance Short Term Goal (STG Dayami is educated on a HEP for pelvic floor strength ) and endurance training good progress STG Duration 4 weeks Mcfp Goal (LTG) Dayami is able to sustain a pelvic floor contraction in supine x 10 seconds and is able to increase her strength by at least 1 muscle grade good progress LTG Duration 8-12 weeks 1 Impairment pelvic organ proplapse with c/o pelvic pressure and heaviness Short Term Goal (STG Dayami is educated on pelvic decompression to take ) pressure off her pelvic organs following sitting for her full day with downward pressure goal met STG Duration 4 weeks Family Coach Goal (LTG) Dayami reports a overall reduction in pelvic organ pressure and heaviness Dayami has been noting a overall decrease in symptoms, she was sick last week and was vomiting and this exacerbated her symptoms LTG Duration 8-12 weeks Assessment Summary Assessment At this point Dayami is considering hip surgery and has canceled the remaining PT visits at this time. She did reach a plateau with PT with her ongoing hip pain. She will be discharged from PT at this time Physical Therapy Plan Discharge Physical Therapy Discharge Reasons Plateau in Progress
== END 2025-03-17 13:20 | disposition home or self-care (01) ==
LOC: PHYS 15:15
PROVIDERS: Family Provider Family Medicine; PCP Family Medicine; Referring Provider Obstetrics & Gynecology; Visit Provider Obstetrics & Gynecology
DX: M62.89 Other specified disorders of muscle (principal); N39.41 Urge incontinence; N81.84 Pelvic muscle wasting; N81.9 Female genital prolapse, unspecified
CPT/HCPCS: 97110; 97162; 97535